=== PATIENT | male | born 1985 | race Caucasian/White ===

== ENCOUNTER 2016-11-03 20:28 | Inpatient (IN) | payer OTHER ==
[~2016-11-03] VITALS: Ht 172.7 cm; Wt 118.7 kg
[~2016-11-03 20:28] MED LIST: AMI10 PO; HYDR-906 PO; IBUP-1542 PO; TRAM50TA2 PO
[2016-11-03 21:30] VITALS: BP 124/62; PULSE 93; RESP 19; Ht 172.7 cm; Wt 118.7 kg
[2016-11-03] MEDS ORDERED: BISACODYL 10 MG SUPP PR PRN (22:30)
[2016-11-03] MEDS ORDERED: ONDANSETRON 4 MG INJ IV PRN (22:30)
[2016-11-03] MEDS ORDERED: LORAZEPAM 2 MG INJ IV PRN (22:30)
[2016-11-03] MEDS ORDERED: ACETAMINOPHEN 650 MG SUPP PR PRN (22:30)
[2016-11-03] MEDS ORDERED: NACL 0.9% 3 ML SYG IV SCH (22:30)
--- NOTE | 2016-11-03 22:33 | HP ---
Date/Time of Note Date/Time of Note DATE: 11/03/16 TIME: 22:26 Assessment/Plan VTE Prophylaxis VTE Prophylaxis Intervention: SCD's Lines/Catheters Urinary Cath still in place: No Assessment/Plan Assessment/Plan 31 yo male with a past medical history of anxiety/depression who complains of abdominal pain that started on 11/01/2016. 1. Abd pain - acute cholecystitis - will admit the patient to med/surg, consult Dr. Pryor (surgeon on-call), IVF, NPO, IV flagyl/cipro, pain medications, zofran and pepcid IV 2. Anxiety/Depression - hold home medications, IV ativan prn 3. GI ppx - pepcid 4. DVT ppx - scds answered all of his questions. as per clinical course. this history and physical took greater then 45 minutes to complete HPI/ROS Admit Date/Time Admit Date/Time Nov 03, 2016 at 21:33 Hx of Present Illness 31 yo male with a past medical history of anxiety/depression who complains of abdominal pain that started on 11/01/2016. Patient states that he gone to [facility] on 11/01/2016 for the initial abdominal pain, and was sent home with zofran, pain medications, omeprazole. Since then, he has had worsening mid-epigastric abdominal pain, 10/10 in intensity, non-radiating, sharp shooting, worsening in nature, no alleviating factors. Associated with this is > 10 episodes of bilious/non-bloody vomitus, nausea, fevers and chills. He cannot hold his breath because of the pain. Otherwise denies any trauma, chest pain, dizziness, headaches, urinary/bowel irregularities, new diet changes , or other constitutional symptoms. Patient had initially gone to [facility], and was transferred here for insurance purposes. [facility]: WBC: 11.7 US abd gallstones with gallbladder wall thickening and pericholecystic fluid noted CXR: low lung volumes, bibasilar atelectasis noted ROS 14 point review of systems completed, please refer to HPI for any positive findings PMH/Family/Social Past Medical History anxiety/depression Past Surgical History Past Surgical Hx: no surgical history Family History Significant Family History: no pertinent family hx Social History Alcohol Use: none Smoking Status: Former smoker Drug Use: marijuana Exam/Review of Systems Vital Signs Vitals Vital Signs Date Time Temp Pulse Resp B/P Pulse Ox O2 Delivery O2 Flow Rate FiO2 11/03/16 21:30 97.8 93 19 124/62 93 Room Air Exam Exam Gen Greg: mild to moderate distress 2/2 to abdominal pain, AAOx4, obese male HEENT: NC/AT, PERRLA, EOMI, no pharyngeal erythema, no tonsillar exudates, no lymphadenopathy, no JVD, no carotid bruits NECK: supple, no thyromegaly THORAX: symmetrical, no obvious deformities CV: S1S2, RRR, no M/G/R Lungs: CTAB no W/C/R/R Abd: soft, tenderness to palpation RUQ, guarding noted, + Chilel's sign, ND, +BS , no HSM EXT: no edema, no ecchymosis, no clubbing, FROM Neuro: CN II-XII grossly intact, no focal deficits Psych: good mentation, alert and oriented, good mood and affect Skin: C/D/I AMANDA SOTO MD Nov 03, 2016 22:33
[2016-11-03] MEDS: SOD CHLORIDE 0.9% 1,000 ML IV SCH (22:37)
[2016-11-03] MEDS: morphine 2 MG INJ IV PRN (22:41)
[2016-11-03] MEDS: metroNIDAZOLE 500 MG/NS (PMX) 100 ML IVPB SCH (22:44)
[2016-11-03] MEDS: FAMOTIDINE 20 MG INJ IV SCH (22:44)
[2016-11-03 23:46] LABS: CHOL/HDL RATIO 3.6 RATIO; MAGNESIUM 2.2 mg/dl (1.7-2.5)
[2016-11-04] MEDS: CIPROFLOXACIN 400MG/D5W 200 ML IVPB SCH ×3 (00:06→20:43)
[2016-11-04 00:17] LABS: THYROID STIMULATING HORMONE 2.69 MIU/L (0.465-4.680)
[2016-11-04] MEDS: morphine 2 MG INJ IV PRN ×4 (02:44→16:02)
[2016-11-04 05:18] LABS: BASOPHILS % 0.5 % (0.0-2.0); EOSINOPHILS # 0.4 10^3/ul (0.0-0.5); HEMATOCRIT 40.8 % (42.0-52.0); LYMPHOCYTES # 2.4 10^3/ul (0.8-2.9); LYMPHOCYTES % 25.7 % (15.0-51.0); MEAN CORPUSCULAR HEMOGLOBIN 31.9 pg (29.0-33.0); MEAN CORPUSCULAR HGB CONC 34.3 g/dl (32.0-37.0); MONOCYTE # 0.9 10^3/ul (0.3-0.9); MONOCYTES % 9.5 % (0.0-11.0); NEUTROPHIL # 5.6 10^3/ul (1.6-7.5); NEUTROPHILS % 60.3 % (39.0-77.0); PLATELET COUNT 176 10^3/UL (140-440); RED BLOOD COUNT 4.39 10^6/ul (4.70-6.10); UNCORRECTED WBC 9.2 10^3/ul (4.8-10.8); WHITE BLOOD COUNT 9.2 10^3/ul (4.8-10.8)
[2016-11-04 05:21] LABS: CONDITION 1
[2016-11-04 05:34] LABS: ALBUMIN 3.7 g/dl (3.3-4.9)
[2016-11-04 05:35] LABS: POTASSIUM 4.3 mmol/L (3.5-5.1)
[2016-11-04 05:37] LABS: ALBUMIN/GLOBULIN RATIO 1.02; BILIRUBIN,INDIRECT 0.5 mg/dl (0-1.1); BILIRUBIN,TOTAL 0.5 mg/dl (0.2-1.3); CALCIUM 8.9 mg/dl (8.4-10.2); CREATININE 0.93 mg/dl (0.61-1.24); TOTAL PROTEIN 7.3 g/dl (6.1-8.1)
[2016-11-04] MEDS: metroNIDAZOLE 500 MG/NS (PMX) 100 ML IVPB SCH ×3 (05:54→21:57)
[2016-11-04] MEDS ORDERED: metroNIDAZOLE 500 MG/NS (PMX) 100 ML IVPB SCH (06:00)
[2016-11-04 08:53] VITALS: BP 115/60; RESP 20
[2016-11-04] MEDS ORDERED: CIPROFLOXACIN 400MG/D5W 200 ML IVPB SCH (09:00)
[2016-11-04] MEDS ORDERED: FAMOTIDINE 20 MG INJ IV SCH (09:00)
[2016-11-04] MEDS: FAMOTIDINE 20 MG INJ IV SCH ×2 (09:04→20:43)
--- NOTE | 2016-11-04 09:54 | PN ---
Date/Time of Note Date/Time of Note DATE: 11/04/16 TIME: 09:53 Assessment/Plan VTE Prophylaxis VTE Prophylaxis Intervention: SCD's Lines/Catheters Urinary Cath still in place: No Assessment/Plan Chief Complaint/Hosp Course 1. Abdominal pain. Ultrasound showing cholelithiasis with gallbladder wall thickening and pericholecystic fluid. Possible underlying cholecystitis. Continue empiric antibiotics. Continue n.p.o. Continue IV hydration. Continue analgesia. Await surgical evaluation. 2. Obesity. BMI of 39.8 kg/m. Weight reduction will be advised. 3. Anxiety disorder. Continue PRN anxiolytics. 4. Fluids, electrolytes, and nutrition. N.p.o. Continue IV hydration. 5. DVT prophylaxis. Bilateral sequential compression devices. 6. Gastrointestinal prophylaxis. Histamine 2 receptor blockers. 7. Plan. Continue pain control. Continue empiric antibiotics. Await surgery evaluation. Case discussed with Dr. Hayes. Problems: Subjective 24 Hr Interval Summary Free Text/Dictation Complains of abdominal pain. Exam/Review of Systems Vital Signs Vitals Vital Signs Date Time Temp Pulse Resp B/P Pulse Ox O2 Delivery O2 Flow Rate FiO2 11/04/16 08:53 98.0 86 20 115/60 91 11/03/16 21:30 Room Air Intake and Output 11/03/16 11/03/16 11/04/16 15:00 23:00 07:00 Intake Total 700 ml Output Total 800 ml Balance -100 ml Exam General: Obese 31 year-old male lying in bed in no apparent distress. HEENT: Normocephalic, atraumatic. Eyes: Anicteric sclerae, conjunctivae clear. ENT: Nasal septum midline, oral mucosa moist. Neck supple, no JVD noticed. Respiratory: Bilaterally clear breath sounds. No use of accessory muscles of respiration. No adventitious breath sounds. Cardiovascular: S1, S2 heard. No murmurs or gallops. Abdomen: Soft and nondistended. Bowel sounds positive in all 4 quadrants. Right upper quadrant tenderness. Genitourinary: Deferred. Extremities: No cyanosis, no clubbing, no edema. Peripheral pulses palpable. Neurologic: Cranial nerves II through XII grossly intact. The patient is awake, alert, and oriented. Skin: Normal skin turgor. No skin rashes. Results Result Diagram: 1/25/17 0450 1/25/17 0450 Results 24 hrs Laboratory Tests Test 11/03/16 23:27 11/04/16 04:50 Cholesterol Level 141 Cholesterol/HDL Ratio 3.6 HDL Cholesterol 39 Hemoglobin A1c 5.2 LDL Cholesterol, Calculated 80 Magnesium Level 2.2 Thyroid Stimulating Hormone (TSH) 2.690 Triglycerides Level 109 Alanine Aminotransferase (ALT/SGPT) 48 Albumin 3.7 Albumin/Globulin Ratio 1.02 Alkaline Phosphatase 70 Anion Gap 12 Aspartate Amino Transf (AST/SGOT) 30 Basophils # 0.0 Basophils % 0.5 Blood Urea Nitrogen 8 Calcium Level 8.9 Carbon Dioxide Level 33 H Chloride Level 104 Creatinine 0.93 Direct Bilirubin 0.00 Eosinophils # 0.4 Eosinophils % 4.0 Globulin 3.60 H Glucose Level 80 Hematocrit 40.8 L Hemoglobin 14.0 Indirect Bilirubin 0.5 Lymphocytes # 2.4 Lymphocytes % 25.7 Mean Corpuscular Hemoglobin 31.9 Mean Corpuscular Hemoglobin Concent 34.3 Mean Corpuscular Volume 93.0 Mean Platelet Volume 10.0 Monocytes # 0.9 Monocytes % 9.5 Neutrophils # 5.6 Neutrophils % 60.3 Nucleated Red Blood Cells # 0.0 Nucleated Red Blood Cells % 0.0 Platelet Count 176 # Potassium Level 4.3 Red Blood Count 4.39 L Red Cell Distribution Width 13.0 Sodium Level 145 H Total Bilirubin 0.5 Total Protein 7.3 White Blood Count 9.2 Medications Medications Current Medications Sodium Chloride (NS) 1,000 ml @ 75 mls/hr [id number] IV Last administered on 11/03 22:37; Admin Dose 75 MLS/HR; Start 11/03/16 at 22:23 Ondansetron HCl (Zofran Inj) 4 mg Q6H PRN IV NAUSEA AND/OR VOMITING Last administered on 11/03/16 22:41; Admin Dose 4 MG; Start 11/03/16 at 22:30 Acetaminophen (Tylenol Supp) 650 mg Q6H PRN [place] PAIN LEVEL 1-3 OR FEVER; Start 11/03/16 at 22:30 Morphine Sulfate (morphine) 2 mg Q4H PRN IV SEVERE PAIN LEVEL 7-10 Last administered on 11/04/16 07:28; Admin Dose 2 MG; Start 11/03/16 at 22:30 Bisacodyl (Dulcolax Supp) 10 mg DAILY PRN [place] CONSTIPATION; Start 11/03/16 at 22 :30 Lorazepam 1 mg 1 mg Q8H PRN IV anxiety; Start 11/03/16 at 22:30 Ciprofloxacin/ Dextrose 200 ml @ 200 mls/hr Q12 IVPB Last administered on 11/04 09:04; Admin Dose 200 MLS/HR; Start 11/04/16 at 00:00 Metronidazole (Flagyl 500 Mg (Pmx)) 100 ml @ 100 mls/hr Q8 IVPB Last administered on 11/04/16 05:54; Admin Dose 100 MLS/HR; Start 11/03/16 at 23:00 Famotidine (Pepcid Iv) 20 mg Q12 IV Last administered on 11/04/16 09:04; Admin Dose 20 MG; Start 11/03/16 at 23:00 NARDA VALLES NP Nov 04, 2016 09:54
[2016-11-04 14:17] LABS: BARBITURATES NEGATIVE (NEGATIVE); BENZODIAZEPINES POSITIVE (NEGATIVE)
[2016-11-04 14:18] LABS: CANNABINOIDS POSITIVE (NEGATIVE); COCAINE NEGATIVE (NEGATIVE); OPIATES POSITIVE (NEGATIVE)
[2016-11-04] MEDS: SOD CHLORIDE 0.9% 1,000 ML IV SCH (16:06)
--- NOTE | 2016-11-04 22:46 | CONS ---
DATE OF ADMISSION: 11/03/2016 DATE OF CONSULTATION: 11/04/2016 TYPE OF CONSULTATION: Surgical. REFERRING PHYSICIAN: Jose E Soto MD CHIEF COMPLAINT: 1. Abdominal pain. 2. Gallstones. 3. Possible cholecystitis. 4. BMI of 40. 5. Anxiety. HISTORY OF PRESENT ILLNESS: Mr. David Watkins is a 31-year-old male with multiple comorbidities who in itially presented to [facility] on the with abdominal pain in the epigastric region as sociated with nausea, vomiting, and chills, but no fevers. No chest pain, shortness of breath. No visual or neurologic changes. No dysuria. No trauma or sick contacts. No previous history of the same. He was treated and sent home. However, he re-presented to them since the pain persisted, and due to insurance capitation, he was transferred here for further evaluation and treatment. Ultraso und at [place] identified gallstones with gallbladder wall thickening with possible cholecystitis . LFTs and labs have been normal. Surgical consult is obtained for further evaluation and treatmen t. PAST MEDICAL HISTORY: 1. BMI 40. 2. Gallstones. 3. Possible cholecystitis. 4. Abdominal pain. 5. Anxiety. 6. Depression. PAST SURGICAL HISTORY: Denies. FAMILY HISTORY: Denies. SOCIAL HISTORY: Social ETOH. Former tobacco smoker. Smokes marijuana. No other recreational drug s. MEDICATIONS: As per med rec. ALLERGIES: PER CHART. REVIEW OF SYSTEMS: A 12-point review of systems negative unless addressed in the HPI. PHYSICAL EXAMINATION: VITAL SIGNS: Temperature 98, pulse 86, blood pressure 115/60, satting 91% on room air. GENERAL: No acute distress, obese. HEENT: Pupils equal, reactive. No scleral icterus. Mucous membranes are somewhat dry. NECK: Supple. No JVD. No crepitus. Trachea midline. PULMONARY: Normal respiratory effort. No wheezing. CARDIAC: S1, S2 present. ABDOMEN: Soft, nontender, no rebound, no guarding. Negative Chilel's. Negative Rovsing's. No pal pable hernias. EXTREMITIES: No edema. VASCULAR: Cap refill less than 2 seconds. NEUROLOGIC: Alert, oriented, moves all 4 extremities grossly. PSYCHIATRIC: Flat affect. SKIN: No rashes. No jaundice. LABORATORY AND RADIOGRAPHIC: As per chart and HPI. ASSESSMENT AND PLAN: Mr. David Watkins is a 31-year-old male. 1. Abdominal pain, resolved. Differential diagnosis includes symptomatic cholelithiasis plus or mi nus mild cholecystitis. However, this has improved. I had a long discussion with patient and simone r at bedside in terms of his treatment options. The discussion was about surgical intervention for cholecystectomy versus diet optimization and lifestyle optimization. The patient and mom both elect not to proceed with surgery at this time and to improve his diet. The patient drinks lots of soda, several glasses starting in the morning on empty stomach. He is encouraged to stop any soda and fa st foods and decrease his carb intake and avoid spicy food at the time being. He is also encouraged to decrease his greasy intake as well. The patient will follow up as outpatient for further care a nd treatment. We will start him on clear liquid diet and advance his diet as tolerated to discharge tomorrow. 2. BMI of 40. The patient is highly encouraged to optimize his diet and nutrition. The patient is also encouraged to improve his exercise to improve his overall health status. 3. Anxiety and depression, on medication. Continue medical management. 4. Poor diet with lots of fast food and soda. The patient states that his new year's resolution is to improve his diet and health. The patient is highly encouraged to avoid those at this time. Thank you very much for consulting me in this patient's care. Dictated By: JANIE PHILLIPS MD SK/NTS Conf#: [id number] DID#: [id number] CC: SALVADOR CARRANZA MD; JOSE E SOTO MD;*EndCC*
[2016-11-05] MEDS: SOD CHLORIDE 0.9% 1,000 ML IV SCH (01:03)
[2016-11-05] MEDS: metroNIDAZOLE 500 MG/NS (PMX) 100 ML IVPB SCH (05:22)
[2016-11-05 05:36] LABS: BASOPHILS % 0.5 % (0.0-2.0); EOSINOPHILS # 0.4 10^3/ul (0.0-0.5); EOSINOPHILS % 4.8 % (0.0-7.0); HEMATOCRIT 39.7 % (42.0-52.0); HEMOGLOBIN 13.8 g/dl (14.0-18.0); LYMPHOCYTES # 1.8 10^3/ul (0.8-2.9); MEAN CORPUSCULAR HEMOGLOBIN 31.7 pg (29.0-33.0); MEAN CORPUSCULAR HGB CONC 34.8 g/dl (32.0-37.0); MEAN CORPUSCULAR VOLUME 91.1 fl (82.0-101.0); MEAN PLATELET VOLUME 9.1 fl (7.4-10.4); MONOCYTE # 0.6 10^3/ul (0.3-0.9); MONOCYTES % 7.2 % (0.0-11.0); NEUTROPHIL # 5.7 10^3/ul (1.6-7.5); NEUTROPHILS % 66.5 % (39.0-77.0); PLATELET COUNT 199 10^3/UL (140-440); RED BLOOD COUNT 4.35 10^6/ul (4.70-6.10); RED CELL DISTRIBUTION WIDTH 12.6 % (11.5-14.5); UNCORRECTED WBC 8.6 10^3/ul (4.8-10.8); WHITE BLOOD COUNT 8.6 10^3/ul (4.8-10.8)
[2016-11-05 06:00] LABS: PHOSPHORUS 4.7 mg/dl (2.5-4.9)
[2016-11-05 06:01] LABS: ALBUMIN 3.7 g/dl (3.3-4.9)
[2016-11-05 06:04] LABS: ALBUMIN/GLOBULIN RATIO 0.97; BILIRUBIN,INDIRECT 0.5 mg/dl (0-1.1); BILIRUBIN,TOTAL 0.5 mg/dl (0.2-1.3); CREATININE 0.83 mg/dl (0.61-1.24); TOTAL PROTEIN 7.5 g/dl (6.1-8.1)
[2016-11-05 06:32] LABS: CONDITION 1
[2016-11-05] MEDS: FAMOTIDINE 20 MG INJ IV SCH (08:59)
[2016-11-05] MEDS: CIPROFLOXACIN 400MG/D5W 200 ML IVPB SCH (08:59)
[2016-11-05 09:00] VITALS: BP 118/66; RESP 20
--- NOTE | 2016-11-05 10:18 | PDOCDIS ---
Discharge Instructions DIAGNOSIS Discharge Diagnosis: Symptomatic cholelithiasis. Obesity. CONDITION Patient Condition: Stable HOME CARE INSTRUCTIONS: Diet Instructions: Low Fat /CholesterolSpecial Diet: Carbohydrate controlled OTHER ORDERS: Other Orders: 1. Take a low-cholesterol, carbohydrate controlled diet. 2. Take pain medications as needed. Complete the course of antibiotics. Resume home medications. 3. Resume activities as tolerated. 4. Follow-up with your primary care physician in 2 weeks. 5. Go to the nearest emergency room if you continue to have significant abdominal pain, persistent nausea/vomiting or any other unusual signs/symptoms. NARDA VALLES NP Nov 05, 2016 10:18
[2016-11-05] MEDS ORDERED: METR500T PO (10:20)
[2016-11-05] MEDS ORDERED: CIPR500T4 PO (10:20)
--- NOTE | 2016-11-05 11:37 | DS ---
DATE OF ADMISSION: 11/03/2016 DATE OF DISCHARGE: 11/05/2016 FINAL DIAGNOSES: 1. Symptomatic cholelithiasis. Possible underlying cholecystitis. Patient refused surgical intervention. 2. Anxiety disorder. 3. Obesity. 4. Substance abuse. CONSULTATIONS: Dr. Jonathan Pryor, general surgery. HOSPITAL COURSE: This is a 31-year-old male with past medical history of anxiety who went to the local emergency room with chief complaint of abdominal pain. He visited [facility] on 11/01/2016 and was sent home on Zofran and pain medications. The patient continued to have abdominal pain, hence he returned back [place] [facility]. The patient rated the pain as 10/10 in intensity, which was nonradiating. The patient also verbalized more than 10 episodes of bilious, nonbloody vomitus, nausea, fevers and chills. The patient's gallbladder ultrasound that was done in at [facility] showed gallstones with gallbladder wall thickening and pericholecystic fluid. Provided the patient's history of present illness and the diagnostic findings, a clinical decision was made to admit the patient to inpatient setting to have him further evaluated. The patient was transferred to [facility] because of insurance purposes. The patient was admitted to inpatient medical/surgical floor. He was started on empiric antibiotics. He was kept n.p.o. He was maintained on adequate analgesics. A general surgery consult was called. The patient was evaluated by general surgery and general surgery recommended surgical removal of the gallbladder. However, the patient wanted to consider conservative management including antibiotics and dietary control of fat and excessive carbohydrates. Hence, the patient was started on a clear liquid diet, and the patient's diet was advanced as tolerated to a regular consistency diet with no significant abdominal pain. The patient also has underlying history of anxiety. He was maintained on p.r.n. anxiolytics. The patient was noticed to have morbid obesity with a BMI of 39.8 kilograms per meter squared. The patient was advised on weight reduction and dietary control of fats as well as carbohydrates. The patient was also incidentally noticed to have positive marijuana in urine, although the patient refused using any marijuana. The patient was cleared by consultants to be discharged home. The patient's abdominal pain is well controlled. DISPOSITION/PLAN: The patient will be discharged home today. The patient was instructed to take a low-cholesterol, carbohydrate controlled diet. He was instructed to take pain medications as needed and to complete the course of antibiotics. He was instructed to resume his home medications. He was instructed to resume activities as tolerated. He was instructed to follow up with his primary care physician in 2 weeks. He was instructed to go to the nearest emergency room if he continues to have significant abdominal pain, persistent nausea/vomiting or any other unusual signs/symptoms. The patient verbalized understanding of his discharge instructions. CONDITION AT DISCHARGE: Stable. DISCHARGE MEDICATIONS: 1. Ciprofloxacin 500 mg p.o. b.i.d. x7 days. 2. Flagyl 500 mg p.o. q.8 h. x7 days. 3. Elavil 10 mg p.o. at bedtime. 4. [place] 5/325 one tablet p.o. q.6h. p.r.n. pain (#10 tablets). PERTINENT LABORATORY AND DIAGNOSTIC DATA: 1. Latest CBC: WBC 8.6, hemoglobin 13.8, hematocrit 39.7, platelet count 199. 2. Latest BMP: Sodium 142, potassium 4.0, chloride 102, carbon dioxide 29, anion gap 15, BUN 9, creatinine 0.83. Glucose 80, calcium 9.0, phosphorus 4.7, magnesium 2.0, AST 28, ALT 48, alkaline phosphatase 80. 3. Hemoglobin A1c 5.2. 4. Fasting lipid panel: Triglycerides 109, total cholesterol 141, LDL 80, HDL 39. 5. Urine drug abuse screen: Positive for opioids, benzodiazepines, and cannabinoids. At this time, we would like to thank Dr. Pryor for seeing the patient and providing clinical recommendations. The case and management of this patient was fully discussed with Dr. Townsend. Approximately 35 minutes was spent on coordinating the discharge of this patient. NARDA TOWNSEND MD, AM/JENSEN Conf#: [id number] DID#: [id number] MTDD
== END 2016-11-05 11:22 | disposition home or self-care (01) | DRG 446 ==
LOC: MS1 21:33
PROVIDERS: ADMIT Family Medicine; ATTEND Family Medicine
DX: K80.10 Calculus of gallbladder with chronic cholecystitis without obstruction (principal); E66.01 Morbid (severe) obesity due to excess calories; F41.9 Anxiety disorder, unspecified; Z68.39 Body mass index [BMI] 39.0-39.9, adult; F19.10 Other psychoactive substance abuse, uncomplicated
CPT/HCPCS: 80053; 80061; 80307; 83036; 83735; 84100; 84443; 85025; J0744; J2270; J2405; J7030

== ENCOUNTER 2016-11-13 12:36 | Inpatient (IN) | payer OTHER ==
[~2016-11-13] VITALS: Ht 172.7 cm; Wt 109.0 kg
[~2016-11-13 12:36] MED LIST changes: +CIPR500T4 PO; -IBUP-1542 PO; +METR500T PO; -TRAM50TA2 PO
[2016-11-13] MEDS ORDERED: ONDANSETRON 4 MG INJ IV STA (13:26)
[2016-11-13] MEDS ORDERED: SOD CHLORIDE 0.9% 1,000 ML IV STA (13:26)
[2016-11-13] MEDS ORDERED: morphine 4 MG/ML VIAL IV STA (13:26)
[2016-11-13] MEDS ORDERED: AMPICILLIN/SULB 3 GM/NS (PMX) 100 ML IVPB ONE (14:00)
[2016-11-13 14:26] LABS: ADD UMIC NO; URINE BILIRUBIN (Dip) NEGATIVE (NEGATIVE); URINE BLOOD (Dip) NEGATIVE (NEGATIVE); URINE COLOR LT. YELLOW (YELLOW); URINE GLUCOSE (Dip) NEGATIVE (NEGATIVE); URINE KETONES (Dip) NEGATIVE (NEGATIVE); URINE LEUKOCYTE ESTERASE (Dip) NEGATIVE (NEGATIVE); URINE NITRITE (Dip) NEGATIVE (NEGATIVE); URINE TOTAL PROTEIN (Dip) NEGATIVE (NEGATIVE); URINE UROBILINOGEN (Dip) 0.2 E.U./dL (0.1-1.0)
[2016-11-13 14:29] LABS: BASOPHILS % 0.4 % (0.0-2.0); EOSINOPHILS # 0.1 10^3/ul (0.0-0.5); EOSINOPHILS % 1.6 % (0.0-7.0); HEMATOCRIT 42.6 % (42.0-52.0); HEMOGLOBIN 14.6 g/dl (14.0-18.0); LYMPHOCYTES # 1.8 10^3/ul (0.8-2.9); MEAN CORPUSCULAR HEMOGLOBIN 31.6 pg (29.0-33.0); MEAN CORPUSCULAR HGB CONC 34.3 g/dl (32.0-37.0); MEAN CORPUSCULAR VOLUME 92.1 fl (82.0-101.0); MEAN PLATELET VOLUME 8.9 fl (7.4-10.4); MONOCYTE # 0.5 10^3/ul (0.3-0.9); NEUTROPHIL # 6.2 10^3/ul (1.6-7.5); PLATELET COUNT 282 10^3/UL (140-440); RED BLOOD COUNT 4.62 10^6/ul (4.70-6.10); RED CELL DISTRIBUTION WIDTH 12.7 % (11.5-14.5); UNCORRECTED WBC 8.8 10^3/ul (4.8-10.8); WHITE BLOOD COUNT 8.8 10^3/ul (4.8-10.8)
[2016-11-13] MEDS ORDERED: ACETAMINOPHEN 325 MG TAB PO PRN ×2 (14:30→18:00)
[2016-11-13] MEDS ORDERED: ONDANSETRON 4 MG INJ IV PRN ×2 (14:30→18:00)
[2016-11-13 14:38] LABS: CONDITION 1
[2016-11-13 14:48] LABS: ALBUMIN 4.3 g/dl (3.3-4.9); POTASSIUM 4.1 mmol/L (3.5-5.1)
[2016-11-13 14:50] LABS: BILIRUBIN,INDIRECT 0.1 mg/dl (0-1.1); BILIRUBIN,TOTAL 0.1 mg/dl (0.2-1.3); CREATININE 0.75 mg/dl (0.61-1.24)
[2016-11-13 14:51] LABS: ALBUMIN/GLOBULIN RATIO 1.07; CALCIUM 9.5 mg/dl (8.4-10.2); TOTAL PROTEIN 8.3 g/dl (6.1-8.1)
--- NOTE | 2016-11-13 15:03 | RADRPT ---
PROCEDURE: US Abdomen. CLINICAL INDICATION: Abdominal Pain TECHNIQUE: Multiple real-time images were acquired of the patient's abdomen and retroperitoneum ut ilizing a high resolution transducer. COMPARISON: None FINDINGS: There are multiple gallstones present. The gallbladder wall is mildly thickened with a maximal judge sverse diameter of 4 mm. No pericholecystic fluid. Rule out acute calculus cholecystitis. The com mon bile duct is normal limits in size measuring 4.61 mm. No evidence of intrahepatic biliary ducta l dilation. The pancreas could not be evaluated due to overlying bowel gas. The liver is normal in size without focal lesions. The right kidney is normal in size without hydronephrosis or intra adrian l mass. IMPRESSION: 1. Multiple gallstones with mild gallbladder wall thickening and rule out acute calculus cholecysti tis. 2. No evidence biliary ductal dilation. 3. Unremarkable right kidney. RPTAT:AAJJ Physician Jesu Date Time Electronically viewed and signed by Physician Jesu on 11/13/2016 15:03 BM/
[2016-11-13] MEDS ORDERED: HYDROmorphONE 1 MG/ML SYG IV STA (15:10)
[2016-11-13 17:00] VITALS: TEMP 98.3
[2016-11-13] MEDS ORDERED: NA PHOSPHATE/BIPHOS 133 ML ENEMA PR PRN (18:00)
[2016-11-13] MEDS ORDERED: HYDROCODONE/APAP (5/325) TAB PO PRN (18:00)
[2016-11-13] MEDS ORDERED: DOCUSATE SODIUM 100 MG CAP PO PRN (18:00)
[2016-11-13] MEDS ORDERED: hydrALAzine 20 MG INJ IV PRN (18:00)
[2016-11-13] MEDS ORDERED: MAGNESIUM HYDROXIDE 30ML CUP PO PRN (18:00)
[2016-11-13] MEDS ORDERED: NACL 0.9% 3 ML SYG IV SCH (18:00)
[2016-11-13] MEDS ORDERED: ALBUTEROL/IPRATROPIUM (NEB) 3 ML AMP HHN PRN (18:00)
[2016-11-13] MEDS ORDERED: NITROGLYCERIN (SL) 0.4 MG TAB SL PRN (18:00)
--- NOTE | 2016-11-13 18:04 | CONS ---
[facility] INITIAL INPATIENT CONSULTATION NOTE DATE OF CONSULTATION: 11/13/2016 PLACE OF SERVICE: [facility] Emergency Room 2. ASSESSMENT AND PLAN: A very pleasant 31-year-old gentleman with comorbid issues including BMI of 40 and prior marijuana use who appears to have symptomatic biliary colic and possible early acute cholecystitis. Given the number of visits to the emergency department hospitals in [facility], I have recommended that we schedule the patient for an inpatient laparoscopic cholecystectomy. Given the slight elevation in alkaline phosphatase, it is important that we visualize the biliary tree a bit better and therefore are ordering an MRCP as well. If MRCP confirms lack obvious evidence of choledocholithiasis, then we will perform a laparoscopic, possible open cholecystectomy. I described the operation in detail including the risks, benefits and alternatives to the patient. (No family present during my discussions with the patient.) and answered all his questions. The patient appeared to understand and agree with the plan. With above assessment, I recommend the followin. Admit to the hospital. 2. Intravenous fluids. 3. Symptom control with pain medications. 4. Magnetic resonance cholangiopancreatography. 5. Laparoscopic cholecystectomy after above is done. Thank you again for allowing us to participate in the care of this very pleasant gentleman and I am certain his wonderful family. If there are any questions, please feel free to call me at area code [phone]. TOTAL VISIT TIME: 45 minutes of which more than half was spent in [id number] discussion with the patient as well as coordination of care between multiple physicians and providers. CLINICAL HISTORY: This is a very pleasant 31-year-old young gentleman with comorbidities including a BMI near 40 as well as marijuana abuse admitted through the emergency department for a second time in the course of a couple weeks for right upper quadrant abdominal pain that appeared to be due to acute cholecystitis based on previous workup. COMORBIDITIES: 1. BMI of 40. 2. Marijuana abuse. 3. Anxiety. 4. Depression. DATE OF ADMISSION: 11/13/2016 HISTORY OF THE PRESENT ILLNESS: The patient is a very pleasant 31-year-old young gentleman with above-mentioned history who was seen at our emergency department for the second time in a matter of a few days for right upper quadrant abdominal pain, described as a sharp, pressure-like pain in the mid and right upper quadrant. The patient has nausea but no associated vomiting. Recurrent episodes of attacks for the last few days and he has had multiple visits to the emergency department and multiple hospitals for this issue. He was recently admitted and discharged from our hospital on 11/03/2016 to 2016. The plan was for an outpatient laparoscopic cholecystectomy. I was kindly asked to consult. During my visit, the patient did not have any other major complaints. ALLERGIES: NO KNOWN DRUG ALLERGIES. MEDICATIONS: 1. Elavil 2. Ciprofloxacin. 3. [place] 4. Flagyl. SOCIAL HISTORY: The patient lives with his family. He reports no significant smoking. Social drinking and marijuana use. FAMILY HISTORY: No major reported medical, surgical or oncologic issues reported in the family. REVIEW OF SYSTEMS: No other pertinent positives or pertinent negatives in a complete 14-point review of systems. PHYSICAL EXAMINATION: GENERAL: The patient appears to be a very pleasant gentleman of descent, appearing stated age, lying in bed comfortably in no acute distress. BMI is 40. VITAL SIGNS: Temperature is 98.3, blood pressure 123/69, pulse 94, respiratory rate 20, pulse oximetry 95% on room air. HEENT: Normocephalic and atraumatic. Extraocular muscles and hearing are grossly intact bilaterally and symmetrically. Sclerae are nonicteric. Oral cavity is clear; oral mucosa appeared to be pink and moist. Dentition: fair. NECK: Supple. There is no lymphadenopathy or JVD. There is no submental, submandibular or supraclavicular lymphadenopathy. CHEST: Rises symmetrically with each breath; patient is breathing comfortably. There are no audible wheezes, rales or rhonchi on the gross exam. HEART: HPulse is regular and palpable on the *right wrist. Capillary refill was normal. Carotid pulses are palpable bilaterally and symmetrically in the neck. EXTREMITIES: Lower extremities contain no pitting edema around the ankles bilaterally and symmetrically. ABDOMEN: Soft, nondistended and mild to moderately tender in the right upper quadrant. No evidence of organomegaly, caput medusae, engorged subcutaneous veins or ascites. No peritoneal signs or guarding. SKIN: Appears to be pink and feels warm to touch. NEUROLOGIC: Awake, alert, and follows commands appropriately. LABORATORY DATA: White blood cell count 8.8, platelets 282. Electrolytes normal. CO2 of 25. Total bilirubin 0.1, alkaline phosphatase 187, AST 72, ALT 217, lipase 190. Urinalysis negative. IMAGING: Right upper quadrant ultrasound showed multiple gallstones with mild gallbladder wall thickening and no evidence of biliary ductal dilatation. Dictated By: BRIANDA BANG/JENSEN Conf#: [id number] DID#: [id number] MTDD
[2016-11-13 18:11] VITALS: BP 117/67; RESP 18
[2016-11-13] MEDS: morphine 2 MG INJ IV PRN ×2 (18:38→22:52)
[2016-11-13] MEDS: SOD CHLORIDE 0.9% 1,000 ML IV SCH (18:39)
[2016-11-13 18:45] VITALS: BP 117/67; RESP 18
[2016-11-13 18:52] VITALS: Ht 172.7 cm; Wt 109.0 kg
--- NOTE | 2016-11-13 18:54 | HP ---
DATE OF ADMISSION: 11/13/2016 CHIEF COMPLAINT: Abdominal pain. HISTORY OF PRESENT ILLNESS: A 31-year-old male recently hospitalized here from the 11/03/2016 to . At that time, he was found with gallstones but refused surgical intervention at that time . He was sent home with antibiotics which he took for 7 days but he has been having abdominal pain, worsening over the last 24 hours. Positive nausea symptoms, Positive dizziness symptoms. Denied a ny headaches or loss of consciousness. No upper or lower GI bleeding, no diarrhea, no constipation, no fevers or chills. He has been trying to take a liquid diet since he was discharged last month t o try to minimize pain given his gallstones. He said he has been compliant with the antibiotics kb t was prescribed, however, when he came into the ER today, he had a gallbladder ultrasound performed that showed multiple gallstones with mild gallbladder wall thickening, rule out for acute calculus cholecystitis and the surgeon was called in the ER to help to come to evaluate the patient as well. PAST MEDICAL HISTORY: He has anxiety and panic attacks, obesity, history of IV drug use in the past and gallstones. PAST SURGICAL HISTORY: None FAMILY HISTORY: Mother had depression. Father had epilepsy. HOME MEDICATIONS: 1. Elavil 10 mg at bedtime. 2. Altus 5/325 q.6h. p.r.n. SOCIAL HISTORY: Former smoker, quit 2 1/2 months ago. Occasional alcohol use and smokes marijuana . PHYSICAL EXAMINATION: VITAL SIGNS: Stable. GENERAL: The patient is sitting up in bed, answering questions appropriately, has somewhat of a fla t affect, but no acute distress. HEENT: Pupils round, react to light. Extraocular muscles intact. NECK: Supple, no thyromegaly. LUNGS: Clear to auscultation bilaterally. CARDIOVASCULAR: S1, S2 heard. No rubs or gallops. ABDOMEN: Tenderness to palpation right upper quadrant area, but no rebound or guarding. Normal bow el sounds. Nondistended. MUSCULOSKELETAL: No lower extremity edema bilaterally. NEUROLOGIC: No focal deficits. LABORATORIES: CBC is completely normal. Basic metabolic panel was normal; however, the AST 72, ALT is 217, alkaline phosphatase is 187. The total and direct bilirubins are normal; however, the UA s hows negative nitrites and negative leukocyte esterase. The gallbladder ultrasound, the results as mentioned above in the HPI. ASSESSMENT AND PLAN: A 31-year-old male coming in with abdominal pain, right upper quadrant for 1 d ay and positive nausea with signs of acute cholecystitis. 1. Abdominal pain secondary to acute cholecystitis. We will admit him to med/surg floor, keep him n.p.o. except meds, put him on IV fluids, antiemetics. Check a TSH, A1c, lipid panel. The surgery team has already been consulted, looks like patient will go for surgery in the next 12 to 24 hours. Follow up postop recommendations as well. 2. Anxiety. He is going to be on Ativan p.r.n. and we will continue the patient's home Elavil 3. History of obesity. We will do nutrition counseling. 4. Gastrointestinal prophylaxis. He is on a proton pump inhibitor. 5. Deep venous thrombosis prophylaxis, heparin subcutaneously. Dictated By: JOSIAS MON[place] Conf#: [id number] DID#: [id number]
[2016-11-13 18:58] LABS: INR 1.08; PT RATIO 1.1
[2016-11-13 19:00] LABS: PARTIAL THROMBOPLASTIN TIME 34.1 Sec (25.0-35.0)
--- NOTE | 2016-11-13 19:10 | ERA ---
ER Documentation Chief Complaint Date/Time DATE: 11/13/16 TIME: 19:07 Chief Complaint right upper abdominal pain for 1 wk getting worse yesterday. n/v HPI Patient is a 31-year-old male with depression who presents with abdominal pain. He has right upper quadrant abdominal pain which started last Wednesday. He had an ultrasound done at [place] [facility] which showed thickened gallbladder wall and pericholecystic fluid. He was admitted to [facility] on November 06 and had a consultation done by Dr. Pryor. The decision was to manage with outpatient antibiotics and not perform surgery. Upon review of old medical records this is the patient's seventh visit to the ER since 2015. Unfortunately his pain has come back and therefore he needed to return. He does not know the name of his primary doctor. ROS All systems reviewed and are negative except as per history of present illness. Medications Home Meds Active Scripts Metronidazole* (Flagyl*) 500 Mg Tablet, 500 MG PO Q8 for 7 Days, TAB Prov:NARDA VALLES COTTON BROKER 11/05/16 Ciprofloxacin Hcl* (Ciprofloxacin Hcl*) 500 Mg Tablet, 500 MG PO BID for 7 Days , #14 TAB Prov:NARDA VALLES COTTON BROKER 11/05/16 Amitriptyline Hcl* (Elavil*) 10 Mg Tab, 10 MG PO HS for nerve pain, #15 TAB Prov:Magali Gomez PA-C 07/21/16 Hydrocodone/Acetaminophen ([place] 5-325 Tablet) 1 Each Tablet, 1 TAB PO Q6H Y for PAIN, #7 TAB Prov:DIANE CHACON COTTON BROKER 07/18/16 Allergies Allergies: Coded Allergies: No Known Allergy (Unverified , 07/21/16) PMhx/Soc Medical and Surgical Hx: pt denies Surgical Hx History of Surgery: No Anesthesia Reaction: No Hx Neurological Disorder: No Hx Respiratory Disorders: No Hx Cardiac Disorders: No Hx Psychiatric Problems: Yes (ANXIETY, H/O PANIC DISORDER) Hx Miscellaneous Medical Probl: No Hx Alcohol Use: No Hx Substance Use: Yes Hx Tobacco Use: No Smoking Status: Never smoker FmHx Family History: No diabetes Physical Exam Vitals Vital Signs Date Time Temp Pulse Resp B/P Pulse Ox O2 Delivery O2 Flow Rate FiO2 11/13/16 12:53 99.4 104 20 150/91 98 Physical Exam Const: Moderate distress secondary to pain Head: Atraumatic Eyes: Normal Conjunctiva ENT: Normal External Ears, Nose and Mouth. Neck: Full range of motion..~ No meningismus. Resp: Clear to auscultation bilaterally Cardio: Regular rate and rhythm, no murmurs Abd: Right upper quadrant tenderness to palpation with guarding Skin: No petechiae or rashes Back: No midline or flank tenderness Ext: No cyanosis, or edema Neur: Awake and alert Psych: Normal Mood and Affect Result Diagram: 11/13/16 1414 11/13/16 1414 Results 24 hrs Laboratory Tests Test 11/13/16 14:14 Alanine Aminotransferase (ALT/SGPT) 217IU/L Albumin 4.3g/dl Albumin/Globulin Ratio 1.07 Alkaline Phosphatase 187IU/L Anion Gap 20 Aspartate Amino Transf (AST/SGOT) 72IU/L Basophils # 0.010^3/ul Basophils % 0.4% Blood Urea Nitrogen 19mg/dl Calcium Level 9.5mg/dl Carbon Dioxide Level 25mmol/L Chloride Level 102mmol/L Creatinine 0.75mg/dl Direct Bilirubin 0.00mg/dl Eosinophils # 0.110^3/ul Eosinophils % 1.6% Globulin 4.00g/dl Glucose Level 85mg/dl Hematocrit 42.6% Hemoglobin 14.6g/dl Indirect Bilirubin 0.1mg/dl Lipase 190U/L Lymphocytes # 1.810^3/ul Lymphocytes % 21.0% Mean Corpuscular Hemoglobin 31.6pg Mean Corpuscular Hemoglobin Concent 34.3g/dl Mean Corpuscular Volume 92.1fl Mean Platelet Volume 8.9fl Monocytes # 0.510^3/ul Monocytes % 6.0% Neutrophils # 6.210^3/ul Neutrophils % 71.0% Nucleated Red Blood Cells # 0.010^3/ul Nucleated Red Blood Cells % 0.0/100WBC Platelet Count 77750^3/UL Potassium Level 4.1mmol/L Red Blood Count 4.6210^6/ul Red Cell Distribution Width 12.7% Sodium Level 143mmol/L Total Bilirubin 0.1mg/dl Total Protein 8.3g/dl Urine Bilirubin NEGATIVE Urine Clarity CLEAR Urine Color LT. YELLOW Urine Glucose NEGATIVE% Urine Hemoglobin NEGATIVE Urine Ketones NEGATIVE Urine Leukocyte Esterase NEGATIVE Urine Nitrite NEGATIVE Urine Specific [place] <=1.005 Urine Total Protein NEGATIVE Urine Urobilinogen 0.2 E.U./dL Urine pH 5.5 White Blood Count 8.810^3/ul Current Medications Medications (Trade) Dose Ordered Sig/Anmol Route PRN Reason Start Time Stop Time Status Last Admin Dose Admin Sodium Chloride (NS) 1,000 ml @ 1,000 mls/hr Q1H STAT IV 11/13/16 13:26 11/13/16 14:25 DC 11/13/16 14:10 Morphine Sulfate (morphine) 4 mg ONCE STAT IV 11/13/16 13:26 11/13/16 13:27 DC 11/13/16 14:07 Ondansetron HCl 4 mg 4 mg ONCE STAT IV 11/13/16 13:26 11/13/16 13:27 DC 11/13/16 14:07 Ampicillin Sodium/ Sulbactam Sodium (Unasyn 3gm/NS (Pmx)) 100 ml @ 100 mls/hr ONCE ONCE IVPB 11/13/16 14:00 11/13/16 14:59 DC 11/13/16 14:52 Procedures/MDM Ultrasound shows acute cholecystitis per radiology. Patient is a 31-year-old male who presents with acute cholecystitis. The patient will need admission to the hospital. The patient will be admitted to medical surgical bed. I initially spoke with Dr. Pryor who said that he would defer to the surgeon on-call today. I spoke with Dr. Mathias who is the surgeon on-call who will see the patient in consultation. The patient will likely need cholecystectomy tomorrow. The patient was given Unasyn IV. The patient will be admitted to Dr. Farrell from the panel team to a medical surgical bed. The patient was previously admitted to the panel team. Departure Diagnosis: Primary Impression: Cholecystitis Condition: HIEN Vizcaino MD Nov 13, 2016 19:10
[2016-11-13 19:52] VITALS: BP 119/67; RESP 20
[2016-11-13] MEDS: AMITRIPTYLINE 10 MG TAB PO SCH (20:41)
--- NOTE | 2016-11-13 22:12 | RADRPT ---
PROCEDURE: MRI abdomen / MRCP CLINICAL INDICATION: Abdominal pain. TECHNIQUE: MRI of the abdomen is performed without and with 10 cc Magnevist utilizing axial T2 and T2 fat suppression sequences as well as in and out of phase imaging. The MRCP is performed and the MIP series submitted for review. COMPARISON: Gallbladder ultrasound 11/13/2016 FINDINGS: Visualized lower thorax: There is no evidence for consolidation or pleural effusion. Liver: Normal in size, contour and signal intensity with no evidence for masses or ductal dilatatio n. Gallbladder: Multiple round low signal intensity foci are seen within the gallbladder fundus with a n additional gallstone in the region of the gallbladder neck, and non dependent portion, that stone of measuring approximately 11 mm. There is gallbladder wall thickening approximately 6 mm.. Gallbl adder hydrops is present, the pericholecystic fat appears preserved. Common bile duct: There is no filling defect to suggest choledocholithiasis. The caliber of the du ct is of normal estimated at 3.6 mm. The MRCP shows no evidence for intrahepatic or extrahepatic du ctal dilatation, the ductal system is smoothly aligned with no evidence for filling defect. Pancreas: There is no finding to suggest pancreatitis, mass or ductal dilatation. Spleen: Normal in size with no masses evident. Adrenal glands: Unremarkable bilaterally. Kidneys: Normal in size with no evidence for masses or hydronephrosis. Stomach, visualized small bowel and visualized large intestine: No abnormalities are demonstrated. Abdominal aorta: Normal in caliber estimated at 2 cm. Inferior vena cava: Normal. Vertebral bodies and osseous structures: Normal. Musculature and soft tissues: Normal. RPTAT:HJJR IMPRESSION: 1. Cholelithiasis with a gallstone in the gallbladder neck, gallbladder hydrops and mild gallbladde r wall thickening without surrounding pericholecystic inflammation, findings concerning for cholecys titis. 2. The common bile duct and intrahepatic ducts are normal in caliber and there is no choledocholithi asis. Physician Miladys Date Time Electronically viewed and signed by Physician Miladys on 11/13/2016 22:11 /
[2016-11-13] MEDS: HEPARIN 5,000 UNIT/0.5 ML SYG SC SCH (22:26)
[2016-11-14] VITALS (12 sets, daily range): BP systolic 110–159; BP diastolic 56–90; PULSE 87–100; RESP 12–20
[2016-11-14] MEDS: LORAZEPAM 2 MG INJ IV PRN ×3 (01:07→20:23)
[2016-11-14] MEDS: SOD CHLORIDE 0.9% 1,000 ML IV SCH (05:41)
[2016-11-14] MEDS: morphine 2 MG INJ IV PRN (05:41)
[2016-11-14] MEDS: HEPARIN 5,000 UNIT/0.5 ML SYG SC SCH ×3 (05:44→22:26)
[2016-11-14] MEDS ORDERED: PANTOPRAZOLE 40 MG INJ IV SCH (06:00)
[2016-11-14 07:10] LABS: POTASSIUM 4.5 mmol/L (3.5-5.1)
[2016-11-14 07:13] LABS: CREATININE 0.77 mg/dl (0.61-1.24)
[2016-11-14 07:14] LABS: CALCIUM 8.8 mg/dl (8.4-10.2); CHOL/HDL RATIO 3.6 RATIO; MAGNESIUM 2.2 mg/dl (1.7-2.5); PHOSPHORUS 3.8 mg/dl (2.5-4.9)
[2016-11-14 07:41] LABS: THYROID STIMULATING HORMONE 1.88 MIU/L (0.465-4.680)
[2016-11-14 08:09] LABS: RED BLOOD COUNT 4.15 10^6/ul (4.70-6.10); UNCORRECTED WBC 7.6 10^3/ul (4.8-10.8); WHITE BLOOD COUNT 7.6 10^3/ul (4.8-10.8)
[2016-11-14 08:13] LABS: HEMATOCRIT 38.4 % (42.0-52.0); HEMOGLOBIN 12.9 g/dl (14.0-18.0); MEAN CORPUSCULAR VOLUME 92.5 fl (82.0-101.0)
[2016-11-14 08:14] LABS: MEAN CORPUSCULAR HEMOGLOBIN 31.1 pg (29.0-33.0); MEAN CORPUSCULAR HGB CONC 33.6 g/dl (32.0-37.0); MEAN PLATELET VOLUME 10.8 fl (7.4-10.4); PLATELET COUNT 249 10^3/UL (140-440); RED CELL DISTRIBUTION WIDTH 12.2 % (11.5-14.5)
[2016-11-14 08:15] LABS: BASOPHILS % 0.5 % (0.0-2.0); EOSINOPHILS % 3.7 % (0.0-7.0); LYMPHOCYTES % 31.5 % (15.0-51.0); MONOCYTES % 8.7 % (0.0-11.0); NEUTROPHILS % 55.2 % (39.0-77.0)
[2016-11-14 08:16] LABS: EOSINOPHILS # 0.3 10^3/ul (0.0-0.5); LYMPHOCYTES # 2.4 10^3/ul (0.8-2.9); MONOCYTE # 0.7 10^3/ul (0.3-0.9); NEUTROPHIL # 4.2 10^3/ul (1.6-7.5)
--- NOTE | 2016-11-14 09:17 | PN ---
Date/Time of Note Date/Time of Note DATE: 11/14/16 TIME: 09:12 Assessment/Plan VTE Prophylaxis VTE Prophylaxis Intervention: heparin Lines/Catheters IV Catheter Type (from Nrs): Peripheral IV Assessment/Plan Chief Complaint/Hosp Course ASSESSMENT AND PLAN: 31-year-old male coming in with abdominal pain, right upper quadrant for 1 day and positive nausea with signs of acute cholecystitis. 1. Abdominal pain - secondary to acute cholecystitis. MRCP shows + GS in GB neck. - for surgery today, f/u post-op rec's. - keep him n.p.o. except meds,IV fluids, antiemetics. - TSH, A1c, lipid panel. 2. Anxiety. He is going to be on Ativan p.r.n. and we will continue the patient's home Elavil 3. History of obesity. We will do nutrition counseling. 4. Gastrointestinal prophylaxis. He is on a proton pump inhibitor. 5. Deep venous thrombosis prophylaxis, heparin subcutaneously. Problems: Subjective 24 Hr Interval Summary Free Text/Dictation No acute events overnight, at surgery now. Exam/Review of Systems Vital Signs Vitals Vital Signs Date Time Temp Pulse Resp B/P Pulse Ox O2 Delivery O2 Flow Rate FiO2 11/14/16 08:13 98.0 85 20 110/58 92 11/13/16 18:45 Room Air Intake and Output 11/13/16 11/13/16 11/14/16 14:59 22:59 06:59 Intake Total 1000 ml Balance 1000 ml Exam PE: - not done today b/c pt off floor at surgery presently Results Result Diagram: 11/14/16 0520 11/14/16 0520 Results 24 hrs Laboratory Tests Test 11/13/16 14:14 11/13/16 18:29 11/14/16 05:20 Alanine Aminotransferase (ALT/SGPT) 217 H Albumin 4.3 Albumin/Globulin Ratio 1.07 Alkaline Phosphatase 187 H Anion Gap 20 H 15 Aspartate Amino Transf (AST/SGOT) 72 H Basophils # 0.0 0.0 Basophils % 0.4 0.5 Blood Urea Nitrogen 19 15 Calcium Level 9.5 8.8 Carbon Dioxide Level 25 29 Chloride Level 102 105 Creatinine 0.75 0.77 Direct Bilirubin 0.00 Eosinophils # 0.1 0.3 Eosinophils % 1.6 3.7 Globulin 4.00 H Glucose Level 85 76 Hematocrit 42.6 38.4 L Hemoglobin 14.6 12.9 L Indirect Bilirubin 0.1 Lipase 190 Lymphocytes # 1.8 2.4 Lymphocytes % 21.0 31.5 Mean Corpuscular Hemoglobin 31.6 31.1 Mean Corpuscular Hemoglobin Concent 34.3 33.6 Mean Corpuscular Volume 92.1 92.5 Mean Platelet Volume 8.9 10.8 #H Monocytes # 0.5 0.7 Monocytes % 6.0 8.7 Neutrophils # 6.2 4.2 Neutrophils % 71.0 55.2 Nucleated Red Blood Cells # 0.0 0.0 Nucleated Red Blood Cells % 0.0 0.0 Platelet Count 282 # 249 Potassium Level 4.1 4.5 Red Blood Count 4.62 L 4.15 L Red Cell Distribution Width 12.7 12.2 Sodium Level 143 144 Total Bilirubin 0.1 L Total Protein 8.3 H Urine Bilirubin NEGATIVE Urine Clarity CLEAR Urine Color LT. YELLOW Urine Glucose NEGATIVE Urine Hemoglobin NEGATIVE Urine Ketones NEGATIVE Urine Leukocyte Esterase NEGATIVE Urine Nitrite NEGATIVE Urine Specific [place] <=1.005 L Urine Total Protein NEGATIVE Urine Urobilinogen 0.2 E.U./dL Urine pH 5.5 White Blood Count 8.8 7.6 Activated Partial Thromboplast Time 34.1 Free Thyroxine 0.82 INR International Normalized Ratio 1.08 Prothrombin Time 14.0 Prothrombin Time Ratio 1.1 Cholesterol Level 117 Cholesterol/HDL Ratio 3.6 HDL Cholesterol 32 Hemoglobin A1c 5.3 LDL Cholesterol, Calculated 58 Magnesium Level 2.2 Phosphorus Level 3.8 Thyroid Stimulating Hormone (TSH) 1.880 Triglycerides Level 136 Medications Medications Current Medications Ondansetron HCl (Zofran Inj) 4 mg Q6H PRN IV NAUSEA AND/OR VOMITING; Start 11/13 at 18:00 Acetaminophen (Tylenol Tab) 650 mg Q6H PRN PO PAIN LEVEL 1-3 OR FEVER; Start at 18:00 Acetaminophen/ Hydrocodone Bitart (Norris (5/325)) 1 tab Q6H PRN PO MODERATE PAIN LEVEL 4-6 Last administered on 11/13/16 20:38; Admin Dose 1 TAB; Start 11/13 at 18:00 Morphine Sulfate (morphine) 2 mg Q4H PRN IV SEVERE PAIN LEVEL 7-10 Last administered on 11/14/16 05:41; Admin Dose 2 MG; Start 11/13/16 at 18:00 Docusate Sodium (Colace) 100 mg Q12H PRN PO CONSTIPATION; Start 11/13/16 at 18: 00 Magnesium Hydroxide (Milk Of Mag) 30 ml DAILY PRN PO CONSTIPATION; Start at 18:00 Sodium Biphosphate/ Sodium Phosphate (Fleet Enema) 133 ml DAILY PRN [place] CONSTIPATION; Start 11/13/16 at 18:00 Pantoprazole (Protonix Iv) 40 mg DAILY@06 IV Last administered on 11/14/16 05: 40; Admin Dose 40 MG; Start 11/14/16 at 06:00 Heparin Sodium (Porcine) (Heparin (5000 Units/0.5 ml)) 5,000 unit Q8 SC Last administered on 11/14/16 05:44; Admin Dose 5,000 UNIT; Start 11/13/16 at 22:00 Lorazepam 0.5 mg 0.5 mg Q6H PRN IV ANXIETY Last administered on 11/14/16 08:15 ; Admin Dose 0.5 MG; Start 11/13/16 at 18:00 Sodium Chloride (NS) 1,000 ml @ 100 mls/hr Q10H IV Last administered on 05:41; Admin Dose 100 MLS/HR; Start 11/13/16 at 17:39 Hydralazine HCl (Apresoline) 10 mg Q6H PRN IV ELEVATED BLOOD PRESSURE; Start at 18:00 Nitroglycerin (Nitroglycerin (Sl Tab) 0.4 Mg) 1 tab Q5M PRN SL ANGINA; Start at 18:00 Amitriptyline HCl (Elavil) 10 mg HS PO ; Start 11/13/16 at 21:00 JOSIAS MAIN Nov 14, 2016 09:16
[2016-11-14 10:10] LABS: ALBUMIN 3.5 g/dl (3.3-4.9)
[2016-11-14 10:13] LABS: BILIRUBIN,INDIRECT 0.2 mg/dl (0-1.1); BILIRUBIN,TOTAL 0.2 mg/dl (0.2-1.3); TOTAL PROTEIN 6.6 g/dl (6.1-8.1)
[2016-11-14] MEDS ORDERED: BUPIVACAINE 0.25%/EPI (SDV) 30 ML INJ ONE (11:00)
--- NOTE | 2016-11-14 11:01 | HPN ---
Date/Time of Note Date/Time of Note DATE: 11/14/16 TIME: 11:01 Interval H&P Admission Note Pt. seen H&P reviewed: No system changes Pt. seen H&P reviewed. No system changes (I attest that I have seen and examined the patient and reviewed the operation in detail, as well as its risks , benefits and alternatives of the operation). I attest that I have seen and examined the patient and reviewed in detail the operation, and its associated risks, benefits and alternative. I have answered all the patient's questions to the best of my ability and the patient wishes to proceed. Please refer to rest of electronic medical record for additional updates. BRIANDA BUSTOS M.D. Nov 14, 2016 11:01
[2016-11-14] MEDS ORDERED: LIDOCAINE 100 MG SYRINGE ONE (11:16)
[2016-11-14] MEDS ORDERED: ROCURONIUM 50 MG INJ ONE (11:16)
[2016-11-14] MEDS ORDERED: PROPOFOL 20 ML ONE (11:16)
[2016-11-14] MEDS ORDERED: GLYCOPYRROLATE 0.4 MG INJ ONE (11:16)
[2016-11-14] MEDS ORDERED: NEOSTIGMINE 3 MG/3 ML SYRINGE ONE (11:16)
[2016-11-14] MEDS ORDERED: MIDAZOLAM 1 MG/ML 2 ML INJ ONE (11:17)
[2016-11-14] MEDS ORDERED: FENTAnyl 50 MCG/ML VIAL ONE ×2 (11:17→12:20)
[2016-11-14] MEDS ORDERED: DEXAMETHASONE 4 MG/ML 1 ML INJ ONE (11:17)
[2016-11-14] MEDS ORDERED: ONDANSETRON 4 MG INJ ONE (11:17)
[2016-11-14] MEDS ORDERED: LABETALOL HCL 20MG INJ IV PRN (12:00)
[2016-11-14] MEDS ORDERED: ONDANSETRON 4 MG INJ IV PRN (12:00)
[2016-11-14] MEDS ORDERED: TRIMETHOBENZAMIDE 100 MG/ML VIAL IM PRN (12:00)
[2016-11-14] MEDS ORDERED: DIPHENHYDRAMINE 50 MG INJ IV PRN (12:00)
[2016-11-14] MEDS ORDERED: hydrALAzine 20 MG INJ IV PRN (12:00)
[2016-11-14] MEDS ORDERED: MIDAZOLAM 1 MG/ML 2 ML INJ IV PRN (12:00)
[2016-11-14] MEDS ORDERED: HYDROmorphONE (0.2 MG/ML) 10ML SYG IV PRN ×2 (12:00)
[2016-11-14] MEDS ORDERED: MEPERIDINE 25 MG INJ IV PRN (12:00)
[2016-11-14] MEDS ORDERED: EPHEDrine SULFATE 50 MG/5 ML SYG IV PRN (12:00)
[2016-11-14] MEDS ORDERED: FENTAnyl 50 MCG/ML VIAL IV PRN ×2 (12:00)
[2016-11-14] MEDS ORDERED: NA PHOSPHATE/BIPHOS 133 ML ENEMA PR PRN (14:00)
[2016-11-14] MEDS ORDERED: HYDROCODONE/APAP (5/325) TAB PO PRN (14:00)
[2016-11-14] MEDS ORDERED: BISACODYL 10 MG SUPP PR PRN (14:00)
[2016-11-14] MEDS ORDERED: DOCUSATE SODIUM 100 MG CAP PO PRN (14:00)
[2016-11-14] MEDS ORDERED: HYDROmorphONE 1 MG/ML SYG IV PRN (14:00)
[2016-11-14] MEDS: FENTAnyl 50 MCG/ML VIAL IV PRN ×2 (14:01→14:20)
[2016-11-14] MEDS: HYDROmorphONE (0.2 MG/ML) 10ML SYG IV PRN ×2 (14:20→14:36)
--- NOTE | 2016-11-14 14:25 | OPR ---
Date/Time of Note Date/Time of Note DATE: 11/14/16 TIME: 14:25 Operative Report Operative Findings [facility] INPATIENT OPERATIVE NOTE PLACE OF SERVICE: [facility] DATE OF SURGERY: 11/14/2016 PREOPERATIVE DIAGNOSIS: 1. Acute cholecystitis 2. BMI of 36.4 3. Marijuana abuse 4. Anxiety 5. Depression POSTOPERATIVE DIAGNOSIS: 1. Severe acute on chronic cholecystitis with gallbladder hydrops 2. BMI of 36.4 3. Marijuana abuse 4. Anxiety 5. Depression OPERATION: 1. Laparoscopic cholecystectomy; modifier 22 SURGEON: Brianda Bustos M.D. BIG DATA ANALYTICS LEAD: None ANESTHESIA: General endotracheal tube anesthesia ANESTHESIOLOGIST: Miriam Lopez M.D. BRIEF SUMMARY: An otherwise uncomplicated laparoscopic cholecystectomy was performed with findings of severe acute on chronic cholecystitis with gallbladder hydrops. BRIEF HISTORY: The patient is a very pleasant 31-year-old gentleman with comorbid issues including BMI of 36.4 and prior marijuana use who appeared to have symptomatic biliary colic and possible early acute cholecystitis. Given the number of visits to the emergency department hospitals in [facility], I recommended that we schedule the patient for an inpatient laparoscopic cholecystectomy. Given the slight elevation in alkaline phosphatase, we checked an MRCP that did not show any evidence of obvious choledocholithiasis. I met with the patient) no family present during any my discussions with the patient) and counseled him regarding the possible options of treatment, and I strongly suggested a laparoscopic, possible open cholecystectomy. We reviewed the operation in detail as well as the risks, benefits, alternatives, and expected outcomes of this operation. After careful consideration of all the risks, benefits, and alternatives, the patient appeared to understand those risks and wished to proceed with surgery. For a detailed report of my consultation with patient, please refer to my separate consultation note. STATEMENT OF THE INFORMED CONSENT: The patient appeared to understand the risks of the operation to include, but not be limited to risk of postoperative pain and scar tissue, possible infection or bleeding requiring other interventions such as opening the wound, placement of drainage catheters, or other operative interventions; possible injury to surrounding to structures including bowel, bladder, bile duct, or blood vessels, or solid organs such as liver, kidney, or pancreas requiring other interventions or procedures; possible leakage of bile from surgical clip sites, suture lines, or worse, from common bile duct injury, causing significant increase in morbidity and mortality and requiring multiple interventions including but not limited to, placement of drainage catheters, imaging studies, as well as operative interventions; possible other source of sepsis such as urinary tract infections or pneumonias, or other sources of potentially life threatening problems such as deep venous thrombus formation causing pulmonary embolism, myocardial arrhythmias and infarctions, and even . After careful consideration of all their options, the patient and family appeared to understand and wished to proceed with surgery. DESCRIPTION OF PROCEDURE: After obtaining informed consent, the patient was brought into the operating room and was placed in a normal supine position, where successful general endotracheal tube anesthesia was performed. The patient 's abdominal skin was prepped and draped, from the nipple line down to the level of the groins, in the usual sterile fashion. Intravenous access was already in place, and appropriately chosen and dosed prophylactic intravenous antimicrobials were administered. We then called a surgical time-out where patient's identification, date of , nature of the operation, allergies, presence of intravenous antimicrobials, presence of needed equipment, and any other concerns were reviewed and agreed upon by all members of the operating room team. We then started the operation by placing a 5-mm skin incision in the right- upper quadrant, subcostal midclavicular line, and introduced a 5-mm [employer] trocar into the peritoneal space, visualizing all the layers of the abdominal wall as we entered. Note that there was no indication of any injury to underlying structures once we entered the peritoneum. We insufflated the abdominal cavity to a maximum pressure of 15 mmHg, again, confirmed lack of any injury to underlying structures prior to visualizing the rest of the abdominal cavity. We found the fundus of the gallbladder to be visible. Gallbladder appeared to be distended. There was no evidence of malignancy. No evidence of calcifications or significant issues with adhesions, or other abnormalities. The liver appeared to be healthy. With this information, we went a head and placed the other trocars under direct visualization, after injecting their sites with 0.25% Marcaine with epinephrine , placing a 5-mm trocar in the umbilical midline area, a 5-mm trocar in the right anterior axillary line, and a 12-mm trocar in the midline subxiphoid region. With our instruments in place, we had excellent visualization and access to the right-upper quadrant. We then deflated the gallbladder using a laparoscopic needle prior to grasping the fundus of the gallbladder and pointing up the gallbladder towards the right- upper quadrant. We were then able to grasp the infundibulum and pull it out in order to expose the critical triangle of Calot. There was significant amount of inflammation in the triangle of Calot. We then placed our usual serosal cuts along the long axis of the gallbladder 1 cm away from its attachment to the liver bed up towards the fundus, and then joined these 2 lines under the infundibulum, taking care not to deliver any energy to underlying structures. We then attempted to dissect in the triangle, but due to the significant amount of adhesions and scarring, I decided to maximize the degree of safety of the operation by taking the gallbladder top down using cautery. This was challenging due to the amount of scarring that was encountered. Blood loss was more than her normal due to the difficulty in dissection. It took extra time and effort and required extra level of expertise decision making to safely dissect the structures in the triangle and to completely disconnected the gallbladder from gallbladder bed safely. For this reason, this operation qualifies for modifier 22. We performed meticulous dissection to identify and circumferentially isolate both the cystic duct and cystic artery, prior to transecting them between 2 surgical Endoclips, proximally and one distally on the cystic artery using cold scissors, and a vascular (white) load of the Endo CEZAR stapler to transect across the cystic duct, and only after making sure that these were the only 2 structures going into the gallbladder. We then shaved the gallbladder off the gallbladder bed using cautery, and then delivered it out inside of an EndoCatch bag through the 12-mm trocar site with enlarging the fascia but without contaminating the wound. The gallbladder was sent to Pathology for evaluation. Returning to the abdominal cavity, we ensured that there was adequate hemostasis and bile-stasis prior to removal of all of or equipment, including the pneumoperitoneum, and then reapproximating the 12-mm trocar site with multiple [id number] 0 Vicryl sutures, followed by washing the wounds with copious amounts of normal saline, and then reapproximating the skin using interrupted 4-0 Monocryl sutures. Light dressing was then applied. At the end of the operation, both the sponge count and needle count were reportedly correct x2. The patient tolerated the procedure without any reported complications. ESTIMATED BLOOD LOSS: 200 mL BLOOD OR BLOOD PRODUCT TRANSFUSIONS: None to my knowledge. SPECIMENS: 1. Gallbladder COMPLICATIONS: None. DISPOSITION: Recovery area. Disclaimer: Inadvertent spelling and grammatical errors are likely due to EHR/ dictation software use and do not reflect on the quality of delivered patient care. BRIANDA BUSTOS M.D. Nov 14, 2016 14:25
[2016-11-14] MEDS: HYDROmorphONE 1 MG/ML SYG IV PRN ×2 (16:03→20:32)
[2016-11-14] MEDS: D5W-0.45 NACL + KCL 20 MEQ 1,000 ML IV SCH (16:03)
[2016-11-14] MEDS: HYDROCODONE/APAP (5/325) TAB PO PRN ×2 (16:55→23:15)
[2016-11-14] MEDS: AMITRIPTYLINE 10 MG TAB PO SCH (20:23)
[2016-11-15] MEDS: D5W-0.45 NACL + KCL 20 MEQ 1,000 ML IV SCH ×2 (02:47→09:08)
[2016-11-15] MEDS: HEPARIN 5,000 UNIT/0.5 ML SYG SC SCH (05:58)
[2016-11-15 06:49] LABS: CREATININE 0.74 mg/dl (0.61-1.24)
[2016-11-15 06:50] LABS: CALCIUM 9.4 mg/dl (8.4-10.2)
--- NOTE | 2016-11-15 07:05 | PDOCDIS ---
Discharge Instructions CONDITION Patient Condition: Stable HOME CARE INSTRUCTIONS: Special Diet: soft diet ACTIVITY: Activity Restrictions: Slowly Increase Activity FOLLOW UP/APPOINTMENTS Appointments See your doctor in clinic in 1 week./ JOSIAS MAIN Nov 15, 2016 07:05
[2016-11-15 08:00] VITALS: BP 115/74; PULSE 84; RESP 18
[2016-11-15 08:08] VITALS: BP 115/58; RESP 20
--- NOTE | 2016-11-15 08:51 | DS ---
DATE OF ADMISSION: 11/13/2016 DATE OF DISCHARGE: 11/15/2016 HISTORY OF PRESENT ILLNESS: A 31-year-old male originally admitted on 11/13/2016 being discharged o n 11/15/2016 pending clearance from the surgery team. HOSPITAL COURSE: The patient came in initially with abdominal pain. He was found with acute cholec ystitis. He was admitted to med/surg floor. He was seen by general surgery team and underwent a la paroscopic cholecystectomy. The patient tolerated the procedure well. Afterward, he was able to am bulate and tolerate a p.o. diet. His labs were stable 24 hours after discharge, and if his labs con tinue to improve and he gets clearance from the surgery team, he will be discharged home today in im proved condition. If he does go today, he will be sent with 1. Elavil 10 mg at bedtime. 2. Percocet 5/325 p.o. q. 6 p.r.n. He is going to continue his home Paxil medicine as well. FOLLOWUP: He will need to follow up with primary care doctor team in the clinic in the next 1 to 2 weeks. FINAL DIAGNOSES: 1. Abdominal pain secondary to acute cholecystitis status post laparoscopic cholecystectomy. 2. History of marijuana use. 3. BMI of 40, obesity. 4. History of anxiety and depression. Time spent discharging the patient 35 minutes. Dictated By: JOSIAS RAMOS/JENSEN Conf#: [id number] DID#: [id number]
[2016-11-15] MEDS ORDERED: FAMOTIDINE 20 MG INJ IV SCH (09:00)
[2016-11-15] MEDS ORDERED: ENOXAPARIN 40 MG/0.4 ML SYG SC SCH (09:00)
[2016-11-15 13:45] LABS: HEMATOCRIT 42.2 % (42.0-52.0); HEMOGLOBIN 14.1 g/dl (14.0-18.0); LYMPHOCYTES # 1.3 10^3/ul (0.8-2.9); LYMPHOCYTES % 8.2 % (15.0-51.0); MEAN CORPUSCULAR HEMOGLOBIN 31.3 pg (29.0-33.0); MEAN CORPUSCULAR HGB CONC 33.4 g/dl (32.0-37.0); MEAN CORPUSCULAR VOLUME 93.8 fl (82.0-101.0); MEAN PLATELET VOLUME 9.5 fl (7.4-10.4); MONOCYTE # 0.6 10^3/ul (0.3-0.9); MONOCYTES % 3.9 % (0.0-11.0); NEUTROPHIL # 14.2 10^3/ul (1.6-7.5); NEUTROPHILS % 87.9 % (39.0-77.0); PLATELET COUNT 310 10^3/UL (140-440); RED CELL DISTRIBUTION WIDTH 12.9 % (11.5-14.5); UNCORRECTED WBC 16.2 10^3/ul (4.8-10.8); WHITE BLOOD COUNT 16.2 10^3/ul (4.8-10.8)
[2016-11-15 13:46] LABS: CONDITION 1
[2016-11-18 08:05] VITALS: BP 131/81; RESP 20
== END 2016-11-15 10:30 | disposition home or self-care (01) | DRG 418 ==
LOC: FTE 12:36 → MS2 14:28
PROVIDERS: ADMIT Hospitalist; ATTEND Hospitalist
PROC: 0FT44ZZ Resection of Gallbladder, Percutaneous Endoscopic Approach (ICD-10-PCS; principal; 2016-11-14 10:00)
DX: K80.12 Calculus of gallbladder with acute and chronic cholecystitis without obstruction (principal); K82.1 Hydrops of gallbladder; Z68.41 Body mass index [BMI] 40.0-44.9, adult; E66.9 Obesity, unspecified; F41.9 Anxiety disorder, unspecified; F41.0 Panic disorder [episodic paroxysmal anxiety]; F12.10 Cannabis abuse, uncomplicated
CPT/HCPCS: 36415; 74181; 76705; 80048; 80053; 80061; 80076; 81003; 83036; 83690; 83735; 84100; 84439; 84443; 85025; 85610; 85730; 88304; 96374; 96375; C9113; J0295; J1100; J1170; J1200; J1650; J2001; J2060; J2175; J2250; J2270; J2405; J2710; J3010; J3480; J7030

== ENCOUNTER 2016-12-02 11:23 | Outpatient (CLI) | payer OTHER ==
[~2016-12-02] VITALS: Ht 172.7 cm; Wt 116.4 kg
[~2016-12-02 11:23] MED LIST changes: -CIPR500T4 PO; -HYDR-906 PO; -METR500T PO
[2016-12-02 11:25] VITALS: BP 135/78; PULSE 103; RESP 18; Ht 172.7 cm; Wt 116.4 kg
--- NOTE | 2016-12-02 12:06 | PN ---
Date/Time of Note Date/Time of Note DATE: 12/02/16 TIME: 12:00 Assessment/Plan Assessment/Plan Assessment/Plan [facility] Progress Note Date of Service: 12/02/16 Today's Impression & Plan: Overall doing well post op without major issues. No major wound problems. With above assessment, I've recommended the following for today: 1. F/u with PCP 2. F/u with us prn Thank you again for your great care of this very pleasant patient and wonderful family. If there are any questions, please feel free to call me at [phone]. TOTAL VISIT TIME: 20 minutes of which more than half was spent in [id number] discussion with the patient, possibly including family, as well as coordination of care between multiple physicians and providers. Disclaimer: Inadvertent spelling or grammatical errors are likely due to EHR/ dictation software use and do not reflect on the overall quality of patient care. Updated Clinical Summary: The patient is a very pleasant 31-year-old gentleman with comorbid issues including BMI of 36.4 and prior marijuana use who appeared to have symptomatic biliary colic and possible early acute cholecystitis. Given the number of visits to the emergency department hospitals in [facility], I recommended that we schedule the patient for an inpatient laparoscopic cholecystectomy. Given the slight elevation in alkaline phosphatase, we checked an MRCP that did not show any evidence of obvious choledocholithiasis. 11/14/16: An otherwise uncomplicated laparoscopic cholecystectomy was performed with findings of severe acute on chronic cholecystitis with gallbladder hydrops. Comorbidities: 1. Severe acute on chronic cholecystitis with gallbladder hydrops 2. BMI of 36.4 3. Marijuana abuse 4. Anxiety 5. Depression Subjective: No major events or complaints; no major abd pain and no longer on narcotic medications; still with some incisional pain, particularly upper midline; no n/v /d; no sob or cp; + flatus; + BM and normal; + activity Objective: Vitals: See below Exam: GENERAL: On exam, the patient was sitting in a chair and appeared to be comfortable and in no acute distress. ABDOMEN: Soft, nontender and nondistended. Incisions are clean, dry and intact without any evidence of erythema, edema, discharge, or hernia. There are no peritoneal signs or guarding. SKIN: Skin appears to be pink and feels warm to touch. NEUROLOGIC: Patient is awake, alert, and follows commands appropriately. Exam/Review of Systems Vital Signs Vitals Vital Signs Date Time Temp Pulse Resp B/P Pulse Ox O2 Delivery O2 Flow Rate FiO2 12/02/16 11:25 98.1 103 18 135/78 99 Room Air BRIANDA BUSTOS M.D. Dec 02, 2016 12:06
[2016-12-03] MEDS ORDERED: TRAM50TA2 PO (13:31)
[2016-12-03] MEDS ORDERED: DOCU-144 PO (13:32)
== END 2016-12-02 16:12 | disposition home or self-care (01) ==
LOC: HPC 11:23
PROVIDERS: ATTEND Transplant Surgery
DX: K81.9 Cholecystitis, unspecified (principal); F12.10 Cannabis abuse, uncomplicated; F41.9 Anxiety disorder, unspecified; F32.9 Major depressive disorder, single episode, unspecified
CPT/HCPCS: G0463

== ENCOUNTER 2016-12-03 11:20 | Emergency (ER) | payer OTHER ==
[~2016-12-03] VITALS: Wt 113.0 kg
[2016-12-03] MEDS ORDERED: DICLOFENAC SODIUM 37.5 MG/ML VIAL IV STA (11:42)
[2016-12-03 13:04] LABS: ADD SCAN DIFF NO
[2016-12-03 13:09] LABS: BASOPHIL # 0.1 10^3/ul (0.0-0.1); BASOPHILS % 0.7 % (0.0-2.0); EOSINOPHILS # 0.2 10^3/ul (0.0-0.5); EOSINOPHILS % 2.5 % (0.0-7.0); HEMATOCRIT 45.2 % (42.0-52.0); HEMOGLOBIN 14.9 g/dl (14.0-18.0); LYMPHOCYTES # 2.5 10^3/ul (0.8-2.9); LYMPHOCYTES % 36.2 % (15.0-51.0); MEAN CORPUSCULAR HEMOGLOBIN 30.4 pg (29.0-33.0); MEAN CORPUSCULAR VOLUME 92.2 fl (82.0-101.0); MEAN PLATELET VOLUME 11.9 fl (7.4-10.4); MONOCYTE # 0.5 10^3/ul (0.3-0.9); MONOCYTES % 7.4 % (0.0-11.0); NEUTROPHIL # 3.7 10^3/ul (1.6-7.5); NEUTROPHILS % 53.1 % (39.0-77.0); PLATELET COUNT 203 10^3/UL (140-415); RED CELL DISTRIBUTION WIDTH 12.4 % (11.5-14.5); WHITE BLOOD COUNT 6.9 10^3/ul (4.8-10.8)
[2016-12-03] MEDS ORDERED: morphine 4 MG/ML VIAL IV STA (13:19)
[2016-12-03 13:21] LABS: ALBUMIN 4.5 g/dl (3.3-4.9)
[2016-12-03 13:22] LABS: POTASSIUM 4.4 mmol/L (3.5-5.1)
[2016-12-03 13:24] LABS: ALBUMIN/GLOBULIN RATIO 1.12; CREATININE 0.76 mg/dl (0.61-1.24); TOTAL PROTEIN 8.5 g/dl (6.1-8.1)
[2016-12-03 13:25] LABS: CALCIUM 9.4 mg/dl (8.4-10.2)
[2016-12-03] MEDS ORDERED: TRAM50TA2 PO (13:31)
[2016-12-03] MEDS ORDERED: DOCU-144 PO (13:32)
--- NOTE | 2016-12-03 13:37 | ERD ---
ER Documentation Chief Complaint Date/Time DATE: 12/03/16 TIME: 13:32 Chief Complaint right upper quad ap s/p cholecystectomy 2 wks , pain on movement HPI This 31-year-old male presents with right upper quadrant abdominal pain over the last 2 weeks. History is significant for a laparoscopic cholecystectomy 2 weeks ago. Patient saw his surgeon, dr Evangelista yesterday and review of the record shows that he has normal healing postoperative pain without evidence to suggest concerns or complications. Patient states these has severe pain since his surgery and position changes. He denies fevers, vomiting, and is having normal bowel movements. Denies any urinary complaints. ROS All systems reviewed and are negative except as per history of present illness. Medications Home Meds Active Scripts Docusate Sodium* (Colace*) 100 Mg Capsule, 100 MG PO BID, #20 CAP Prov:ROYAL ELLISON MD 12/03/16 Tramadol HCl (Tramadol HCl) 50 Mg Tablet, 50 MG PO Q4 Y for PAIN, #20 TAB Prov:ROYAL ELLISON MD 12/03/16 Amitriptyline Hcl* (Elavil*) 10 Mg Tab, 10 MG PO HS for nerve pain, #15 TAB Prov:Magali Gomez PA-C 07/21/16 Allergies Allergies: Coded Allergies: No Known Allergy (Unverified , 12/03/16) PMhx/Soc History of Surgery: Yes (cholecystectomy) Anesthesia Reaction: No Hx Neurological Disorder: No Hx Respiratory Disorders: No Hx Cardiac Disorders: No Hx Psychiatric Problems: Yes (anxiety, depression) Hx Miscellaneous Medical Probl: No Hx Alcohol Use: No Hx Substance Use: Yes (socially) Hx Tobacco Use: Yes (socially) Smoking Status: Never smoker Physical Exam Vitals Vital Signs Date Time Temp Pulse Resp B/P Pulse Ox O2 Delivery O2 Flow Rate FiO2 12/03/16 11:24 98.5 100 21 133/85 99 Physical Exam Const: [] Head: Atraumatic Eyes: Normal Conjunctiva ENT: Normal External Ears, Nose and Mouth. Neck: Full range of motion..~ No meningismus. Resp: Clear to auscultation bilaterally Cardio: Regular rate and rhythm, no murmurs Abd: Soft, non tender, non distended. Normal bowel sounds Skin: No petechiae or rashes Back: No midline or flank tenderness Ext: No cyanosis, or edema. swelling or Homans sign.. Neur: Awake and alert Psych: Normal Mood and Affect Result Diagram: 12/03/16 1210 12/03/16 1210 Results 24 hrs Laboratory Tests Test 12/03/16 12:10 Alanine Aminotransferase (ALT/SGPT) 39IU/L Albumin 4.5g/dl Albumin/Globulin Ratio 1.12 Alkaline Phosphatase 90IU/L Anion Gap 16 Aspartate Amino Transf (AST/SGOT) 24IU/L Basophils # 0.110^3/ul Basophils % 0.7% Blood Urea Nitrogen 16mg/dl Calcium Level 9.4mg/dl Carbon Dioxide Level 29mmol/L Chloride Level 103mmol/L Creatinine 0.76mg/dl Direct Bilirubin 0.00mg/dl Eosinophils # 0.210^3/ul Eosinophils % 2.5% Globulin 4.00g/dl Glucose Level 81mg/dl Hematocrit 45.2% Hemoglobin 14.9g/dl Indirect Bilirubin 0.0mg/dl Lipase 158U/L Lymphocytes # 2.510^3/ul Lymphocytes % 36.2% Mean Corpuscular Hemoglobin 30.4pg Mean Corpuscular Hemoglobin Concent 33.0g/dl Mean Corpuscular Volume 92.2fl Mean Platelet Volume 11.9fl Monocytes # 0.510^3/ul Monocytes % 7.4% Neutrophils # 3.710^3/ul Neutrophils % 53.1% Nucleated Red Blood Cells # 0.010^3/ul Nucleated Red Blood Cells % 0.0/100WBC Platelet Count 16342^3/UL Potassium Level 4.4mmol/L Red Blood Count 4.9010^6/ul Red Cell Distribution Width 12.4% Sodium Level 144mmol/L Total Bilirubin 0.0mg/dl Total Protein 8.5g/dl White Blood Count 6.910^3/ul Current Medications Medications (Trade) Dose Ordered Sig/Anmol Route PRN Reason Start Time Stop Time Status Last Admin Dose Admin Diclofenac Sodium (Dyloject) 37.5 mg ONCE STAT IV 12/03/16 11:42 12/03/16 11:44 DC 12/03/16 12:12 Morphine Sulfate (morphine) 4 mg ONCE STAT IV 12/03/16 13:19 12/03/16 13:20 DC 12/03/16 13:26 Procedures/MDM Patient was requesting pain medication. I discussed with patient given this degree of pain. 2 weeks post surgery I'm concerned about abscess or obstruction or leak. Patient states that he thinks he had a CT there is really record shows is no visit for postoperative pain care at this ED. Given the postoperative pain of uncertain cause induration. An IV was obtained. Patient was given dyloject IV. Patient was given morphine 4 mg IV for persistent pain despite dyloject . CBC and CMP and lipase are normal. Radiologic studies were considered but given normal lab results and review of record these were deferred given low suspicion of abscess ongoing occult infection or obstruction. Review of the medical record as well as cures report and PEDRO report shows patient has a history of multiple ER visits and greater than 30 narcotic or controlled substance prescriptions for variety of minor injuries. I suspect dependence on controlled substances may be an underlying reason for the visit. There is no signs of sepsis, obstruction, laboratory evidence to suggest ongoing occult infection or postoperative complication. Patient was given a short course of tramadol , instructions to follow up with surgeon or primary doctor.he is otherwise advised to return for vomiting, fevers, new or worsening symptoms. The patient was stable with no new complaints during the ER course. Clinically, there is no current evidence to suggest meningitis, sepsis, acute abdomen, pneumonia, acute coronary syndrome, pulmonary embolism, or any other emergent condition appearing to require further evaluation or hospitalization. The patient should certainly return for any new or worsening symptoms per the aftercare instructions. They should otherwise follow-up with her primary care doctor for reevaluation this week. Departure Diagnosis: Primary Impression: Post-op pain Condition: Stable Patient Instructions: Post Op Wound Check, Pain Additional Instructions: Labs normal today with no signs of infection or obstruction or postoperative complications. See surgeon for follow-up. Return for fevers, vomiting, new symptoms. ROYAL ELLISON MD Dec 03, 2016 13:36
[2016-12-03 13:55] VITALS: BP 118/56; PULSE 64; RESP 20; TEMP 98.3
== END 2016-12-03 13:56 | disposition home or self-care (01) ==
LOC: FTE 11:20
DX: R10.11 Right upper quadrant pain (principal); G89.18 Other acute postprocedural pain; Z87.891 Personal history of nicotine dependence
CPT/HCPCS: 36415; 80053; 83690; 85025; 96374; 96375; J2270; Z7502; Z7610

== ENCOUNTER 2017-01-07 16:34 | Emergency (ER) | payer OTHER ==
[~2017-01-07] VITALS: Wt 105.0 kg
[~2017-01-07 16:34] MED LIST changes: +DOCU-144 PO; +TRAM50TA2 PO
[2017-01-07] MEDS ORDERED: DIAZEPAM 5 MG/ML SYG IM ONE (18:00)
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
== END 2017-01-07 19:41 | disposition left against medical advice (07) ==
LOC: FTE 16:34
DX: S19.9XXA Unspecified injury of neck, initial encounter (principal); S59.901A Unspecified injury of right elbow, initial encounter; S39.92XA Unspecified injury of lower back, initial encounter; V47.5XXA Car driver injured in collision with fixed or stationary object in traffic accident, initial encounter
CPT/HCPCS: 99282; J3360

== ENCOUNTER 2017-01-30 11:36 | Emergency (ER) | payer OTHER ==
[~2017-01-30] VITALS: Ht 165.1 cm; Wt 114.0 kg
[2017-01-30 11:43] VITALS: Ht 165.1 cm; Wt 114.0 kg
[2017-01-30] MEDS ORDERED: KETOROLAC 30 MG INJ IM STA (12:31)
[2017-01-30] MEDS ORDERED: LORAZEPAM 1 MG TAB PO ONE (13:00)
--- NOTE | 2017-01-30 13:05 | RADRPT ---
PROCEDURE: CT cervical spine without contrast CLINICAL INDICATION: Possible fracture TECHNIQUE: CT scan of the cervical spine was performed . No IV contrast was administered. Pierson l and sagittal reformatted images were obtained from the axial source images. Images were reviewed o n a high-resolution PACS workstation. The calculated radiation dose measures 814.41 mGy centimeters . The CTDI measures 39.87 mGy. One or more of the following dose reduction techniques were used: - Automated exposure control. - Adjustment of the mA and/or kV according to patient size . - Use of iterative reconstruction technique. COMPARISON: None available FINDINGS: There is preservation of the normal cervical lordosis. Alignment remains intact. No acute fracture or dislocation is seen. The vertebral body heights are all well preserved. There is mild spondylos is C6-C7 and C7-T1 with disk space narrowing. There is a small disk osteophyte complex at C3-C4 wit hout osseous central canal stenosis. Uncovertebral joint osteophyte formation is seen at multiple l evels without high-grade osseous central canal stenosis. Posterior elements structures are equally u nremarkable. The paraspinous soft tissues are unremarkable. No mass, hematoma, or other soft tissue abnormality is seen. IMPRESSION: 1. No acute fracture or traumatic subluxation. 2. Mild degenerative disk disease and disk space narrowing at C6-C7 and C7-T1. RPTAT: EE .Marco A Yanez MD, MD Date Time Electronically viewed and signed by .Marco A Yanez MD, MD on 01/30/2017 13:05 .d/
--- NOTE | 2017-01-30 13:44 | RADRPT ---
PROCEDURE: Chest x-ray CLINICAL INDICATION: Shortness of breath TECHNIQUE: Chest single view COMPARISON: None FINDINGS: The heart is normal in size. The pulmonary vessels are normal in caliber. There are low lung volume s with bibasilar atelectasis. No pneumothorax is seen. The costophrenic angles are sharp. The visu alized bony thorax is unremarkable. IMPRESSION: No acute cardiopulmonary disease. Low lung volumes RPTAT: HH .Jere Wheeler MD, Date Time Electronically viewed and signed by .Jere Wheeler MD, on 01/30/2017 13:44 .W/
--- NOTE | 2017-01-30 13:51 | RADRPT ---
PROCEDURE: XR Hand. CLINICAL INDICATION: Pain TECHNIQUE: AP, oblique and lateral views of the right hand were obtained. COMPARISON: Half 08/09/2016 FINDINGS: Three views of the right hand demonstrate no displaced fracture. There is persistent mild flexion at the PIP joint of the first digit. This may suggest contracture. Otherwise no gross malalignment i s seen. The joint spaces are well preserved. No bony erosions are identified. Bones normally mine ralized. Soft tissues are unremarkable. IMPRESSION: 1. No acute fracture identified. 2. Persistent mild flexion of the PIP joint of the fifth digit. This may suggest contracture. Cli nical correlation is advised. RPTAT: HH .Jere Wheeler MD, MD Date Time Electronically viewed and signed by .Jere Wheeler MD, on 01/30/2017 13:50 .W/
[2017-01-30] MEDS ORDERED: TRAM50TA2 PO (14:56)
--- NOTE | 2017-01-30 17:45 | RADRPT ---
PROCEDURE: XR Elbow. CLINICAL INDICATION: Pain TECHNIQUE: AP, lateral and oblique views of the right elbow performed. COMPARISON: None. FINDINGS: Multiple views of the right elbow demonstrate no displaced fracture. No gross malalignment is seen. There is no significant degenerate change. No elbow joint effusion is identified. Bones are norm ally mineralized. Soft tissues are unremarkable. IMPRESSION: No acute fracture dislocation RPTAT: HH .Jere Wheeler MD, MD Date Time Electronically viewed and signed by .Jere Wheeler MD, on 01/30/2017 17:45 .W/
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
== END 2017-01-30 15:38 | disposition home or self-care (01) ==
LOC: FTE 11:36
DX: S63.91XA Sprain of unspecified part of right wrist and hand, initial encounter (principal); S60.221A Contusion of right hand, initial encounter; S29.011A Strain of muscle and tendon of front wall of thorax, initial encounter; S16.1XXA Strain of muscle, fascia and tendon at neck level, initial encounter; M72.0 Palmar fascial fibromatosis [Dupuytren]; V89.2XXA Person injured in unspecified motor-vehicle accident, traffic, initial encounter
CPT/HCPCS: 29125; 71010; 72125; 73080; 73130; 96372; J1885; Z7502; Z7610

== ENCOUNTER 2017-06-23 16:13 | Emergency (ER) | payer OTHER ==
[~2017-06-23] VITALS: Wt 129.0 kg
--- NOTE | 2017-06-23 16:44 | ERD ---
ER Documentation Chief Complaint Date/Time DATE: 06/23/17 TIME: 16:38 Chief Complaint RIGHT 5TH DIGIT INJURY HPI 32-year-old male who presents emergency department for right hand/right fifth/ pinky finger pain. Stated that he started yesterday while he was playing soccer at around 6 PM. 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 Tried to stop the soccer ball using his right hand, injuring his right fifth/pinky finger. Denies headache, head injury, neck pain, shoulder pain, chest pain, back pain, abdominal pain, nausea, vomiting, diarrhea, constipation, loss of bowel bladder control, urinary symptoms, numbness or tingling sensation, difficulty walking, fever, chills. No known drug allergies. Past medical history of anxiety,. Surgical history of cholecystectomy. Medication: Takes Paxil at home. Social: Not working at this time. Right-handed. Denies smoking, use of alcohol, use of illegal drugs. ROS All systems reviewed and are negative except as per history of present illness. Medications Home Meds Active Scripts Ibuprofen* (Motrin*) 800 Mg Tab, 800 MG PO Q8 Y for PAIN AND OR ELEVATED TEMP, # 30 TAB Prov:JUSTINE RG 06/23/17 Hydrocodone/Acetaminophen ([place] 10-325 Tablet) 1 Each Tablet, 1 TAB PO Q6H Y for PAIN, #20 TAB Prov:JUSTINE RG 06/23/17 Tramadol HCl (Tramadol HCl) 50 Mg Tablet, 50 MG PO TID for PAIN AND/OR INFLAMMATION, #20 TAB Prov:GLENDY COELLO MD 01/30/17 Docusate Sodium* (Colace*) 100 Mg Capsule, 100 MG PO BID, #20 CAP Prov:ROYAL ELLISON MD 12/03/16 Tramadol HCl (Tramadol HCl) 50 Mg Tablet, 50 MG PO Q4 Y for PAIN, #20 TAB Prov:ROYAL ELLISON MD 12/03/16 Amitriptyline Hcl* (Elavil*) 10 Mg Tab, 10 MG PO HS for nerve pain, #15 TAB Prov:Magali Gomez PA-C 07/21/16 Allergies Allergies: Coded Allergies: No Known Allergy (Unverified , 06/23/17) PMhx/Soc History of Surgery: Yes (gallbladder removal) Anesthesia Reaction: No Hx Neurological Disorder: No Hx Respiratory Disorders: No Hx Cardiac Disorders: No Hx Psychiatric Problems: Yes (anxiety) Hx Miscellaneous Medical Probl: No Hx Alcohol Use: No Hx Substance Use: No Hx Tobacco Use: No Physical Exam Vitals Vital Signs Date Time Temp Pulse Resp B/P Pulse Ox O2 Delivery O2 Flow Rate FiO2 06/23/17 16:15 98.7 114 17 142/85 95 Physical Exam Const: [] Head: Atraumatic Eyes: Normal Conjunctiva ENT: Normal External Ears, Nose and Mouth. Neck: Full range of motion..~ No meningismus. Resp: Clear to auscultation bilaterally Cardio: Regular rate and rhythm, no murmurs Abd: Soft, non tender, non distended. Normal bowel sounds Skin: No petechiae or rashes Back: No midline or flank tenderness Ext: No cyanosis, or edema. Right fifth/pinky finger has limited range of motion with tenderness to palpation. Right fifth carpal/metacarpal area has tenderness to palpation on dorsal area. PIP joint of the right fifth finger has very limited range of motion (unable to extend), has redness, tenderness. DIP joint of the right fifth finger has good and full range of motion. Circulation sensation is intact. Right wrist is unremarkable. Right elbow is unremarkable. Right shoulder is unremarkable. Right thumb/index/middle/fourth or ring finger is unremarkable. No neurovascular deficits. Neur: Awake and alert Psych: Normal Mood and Affect Results 24 hrs Current Medications Medications (Trade) Dose Ordered Sig/Anmol Route PRN Reason Start Time Stop Time Status Last Admin Dose Admin Acetaminophen/ Hydrocodone Bitart ([place] (10/325)) 1 tab ONCE ONCE PO 06/23/17 17:00 06/23/17 17:01 DC 06/23/17 16:45 Ketorolac Tromethamine (Toradol) 60 mg ONCE STAT IM 06/23/17 19:42 06/23/17 19:43 DC 06/23/17 19:50 Ketorolac Tromethamine (Toradol) 30 mg STK-MED ONCE .ROUTE 06/23/17 19:44 06/23/17 19:45 DC Procedures/MDM Examination: Please see physical examination. Disease process, medical treatment was explained to the patient and family member. They verbalized understanding and agreed with the diagnostic tests, medical treatment, and follow-up care. Radiology: X-ray of the right hand Impression: No visualized traumatic injury. If there is high clinical suspicion for traumatic injury, further evaluation with CT should be considered. Consultation: Case was discussed with supervising physician, Dr. Francesco Aquino Who agreed for me to order CT scan of the hand/finger to rule out fracture. Noncontrast CT of the right hand Impression: Flexion of the PIP joint of the right finger is again seen, suggesting extensor apparatus injury. Extension of the fifth MCP joint may represent an injury involving the flexor apparatus. Consider MRI correlation. CT scan result was discussed with supervising physician, Dr. Francesco Aquino who also examined the patient and suggested to put patient on a ulnar gutter splint to support the left fifth finger. Treatment: [place]. Toradol IM. Short arm ulnar gutter splint to support the right fifth finger. Re-evaluation: No neurovascular deficits prior to and after the application of splint. Right thumb: Has good and full function, full extension and flexion with a score of 5/5 of the metacarpophalangeal joint/DIP joint. Right index/ middle/ring: Has good and full function, full extension flexion with a score of 5/5 of the metacarpophalangeal joint/PIP joint/DIP joint. Right elbow is unremarkable. Right shoulder is mild tenderness to palpation but has full range of motion. Circulation and sensation is intact. No neurovascular deficits. There is no evidence of tendon injury. Right elbow is unremarkable. Right shoulder shoulder is unremarkable. Consultation: Case was discussed with supervising physician, Dr. Francesco Aquino Who agreed for me to order CT scan of the hand/finger to rule out fracture. Differential diagnosis: Fracture versus dislocation versus displacement versus contusion versus sprain Medical decision m[age]-year-old male who presents emergency department for right hand/right fifth/pinky finger pain. Stated that he started yesterday while he was playing soccer at around 6 PM. 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 Tried to stop the soccer ball using his right hand, injuring his right fifth/pinky finger. Patient's complaint, patient's history about his complaint, my physical findings , diagnostic test results, my reevaluation after the treatment are consistent with a final diagnosis right fifth/pinky finger contusion/injury with tendon injury. Medications prescribed are the following: [place]. Motrin. Patient and family member are made aware of the side effects and adverse reactions of the medications prescribed. Instructed on when to seek emergent and medical attention in case allergic/anaphylactic reactions or severe side effects and or adverse reactions to medications. Patient and family member verbalized understanding. Patient instructed Instructed to follow-up with his PCP in 24-48 hours. PCP to refer patient to hand specialist in the next 24-48 hours. Instructed to Call 911 for chest pain, shortness of breath. Advised to come back here in ED as soon as possible for severity of symptoms which includes but not limited to: any new symptoms; shortness of breath/difficulty of breathing; cardiovascular changes; severe gastrointestinal symptoms; signs and symptoms of bleeding and or infection; signs of compartment syndrome/neurovascular changes; neurological changes/deficits. Patient and family member verbalized understanding. Upon discharge, patient is alert and oriented x 4, speaks full and clear sentences, denies pain, has no neurological deficits, has no neurovascular deficits, difficulty of breathing. Breathing even and unlabored. Lung sounds are clear to auscultation. Not in distress. Appears comfortable. Ambulatory with steady gait. Appears satisfied with care provided here in ED. Departure Diagnosis: Primary Impression: Pain of finger Additional Impressions: Finger injury Tendon injury Condition: Stable Additional Instructions: Instructed to follow-up with his PCP in 24-48 hours. PCP to refer patient to hand specialist in the next 24-48 hours. Instructed to Call 911 for chest pain, shortness of breath. Advised to come back here in ED as soon as possible for severity of symptoms which includes but not limited to: any new symptoms; shortness of breath/difficulty of breathing; cardiovascular changes; severe gastrointestinal symptoms; signs and symptoms of bleeding and or infection; signs of compartment syndrome/neurovascular changes; neurological changes/deficits. Patient and family member verbalized understanding. JUSTINE RG Jun 23, 2017 16:44
[2017-06-23] MEDS ORDERED: HYDROCODONE/APAP (10/325) TAB PO ONE (17:00)
--- NOTE | 2017-06-23 17:48 | RADRPT ---
PROCEDURE: XR Hand 3 Views. CLINICAL INDICATION: Right hand pain and trauma. TECHNIQUE: AP, oblique and lateral views of the right hand were obtained. COMPARISON: No prior studies are available for comparison. FINDINGS: The osseous structures are intact. No destructive bony lesions are observed. The interosseous spac es are unremarkable. Soft tissues surrounding the hand appear normal. IMPRESSION: No visualized traumatic injury. If there is high clinical suspicion for traumatic injury, further evaluation with CT should be consi dered. RPTAT: AA .Андрей Paulson MD, Date Time Electronically viewed and signed by .Андрей Paulson MD, on 06/23/2017 17:48 .P/
[2017-06-23] MEDS ORDERED: KETOROLAC 60 MG INJ IM STA (19:42)
[2017-06-23] MEDS ORDERED: KETOROLAC 30 MG INJ ONE (19:44)
--- NOTE | 2017-06-23 20:59 | RADRPT ---
PROCEDURE: Noncontrast CT examination of the right hand. CLINICAL INDICATION: Injury to the fifth finger of the right hand. TECHNIQUE: Noncontrast CT examination of the right hand, with axial, sagittal and coronal reformat zaida images. CTDI: 7.42 and DLP: 187.31. COMPARISON: Plain some examination of the right hand dated today, about 3 hours ago. FINDINGS: Flexion of the PIP joint of the right fifth finger again seen, suggesting extensor apparatus injury. Extension of the fifth MCP joint may represent an injury involving the flexor apparatus. This is si milar in appearance to plain film examination dated today, about 3 hours ago. MRI examination would be of further use. No acute fracture or dislocation otherwise identified. Remaining osseous structures and soft tissues unremarkable. IMPRESSION: 1. Flexion of the PIP joint of the right finger is again seen, suggesting extensor apparatus injury. 2. Extension of the fifth MCP joint may represent an injury involving the flexor apparatus. 3. Consider MRI correlation. RPTAT: [facility] Physician Maico Date Time Electronically viewed and signed by Physician Maico on 06/23/2017 20:59 RS/
[2017-06-23] MEDS ORDERED: HYDR-902 PO (21:23)
[2017-06-23] MEDS ORDERED: IBUP800T25 PO (21:24)
[2017-06-30] MEDS ORDERED: HYDR-906 PO (12:56)
== END 2017-06-23 21:34 | disposition home or self-care (01) ==
LOC: FTE 16:13
DX: S69.91XA Unspecified injury of right wrist, hand and finger(s), initial encounter (principal); W21.02XA Struck by soccer ball, initial encounter; Y92.9 Unspecified place or not applicable
CPT/HCPCS: 29125; 73130; 73200; 96372; J1885; Z7502; Z7610

== ENCOUNTER 2018-04-03 17:11 | Emergency (ER) | END 2018-04-03 18:48 | disposition home or self-care (01) ==

== ENCOUNTER 2018-12-18 09:31 | Emergency (ER) | payer OTHER ==
[~2018-12-18] VITALS: Wt 122.0 kg
[~2018-12-18 09:31] MED LIST changes: +ALPR1TAB2 PO; +HYDR-3980 PO; +HYDR-4011 PO; +IBUP800T48 PO; +PARO-2 PO
[2018-12-18] MEDS ORDERED: ONDANSETRON 4 MG INJ IV STA (11:11)
[2018-12-18] MEDS ORDERED: FAMOTIDINE 20 MG INJ IV STA (11:11)
[2018-12-18] MEDS ORDERED: SOD CHLORIDE 0.9% 1,000 ML IV STA (11:11)
[2018-12-18] MEDS ORDERED: morphine 4 MG/ML VIAL IV STA ×2 (11:11→12:31)
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
[2018-12-18] MEDS ORDERED: IOHEXOL 300MG/ML 150 ML BTL ONE (13:10)
[2018-12-18] MEDS ORDERED: SOD CHLORIDE 0.9% 100 ML ONE (13:10)
[2018-12-18] MEDS ORDERED: LIDOCAINE/MYLANTA 40 ML BTL PO ONE (14:00)
[2018-12-18] MEDS ORDERED: OMEP40CA6 PO (14:02)
[2018-12-18] MEDS ORDERED: TRAM50TA2 PO (14:06)
[2018-12-18 14:29] VITALS: BP 132/75; PULSE 101; RESP 18
== END 2018-12-18 14:30 | disposition home or self-care (01) ==
LOC: FTE 09:31
DX: R10.31 Right lower quadrant pain (principal); R11.2 Nausea with vomiting, unspecified; F17.210 Nicotine dependence, cigarettes, uncomplicated
CPT/HCPCS: 36415; 74177; 80053; 81001; 83690; 85025; 96361; 96374; 96375; 96376; J2270; J2405; J7030; Q9967; Z7502; Z7610